=== PATIENT | female | born 1975 | race Caucasian/White ===

== ENCOUNTER 2018-06-14 16:40 | Outpatient (CLI) | payer MEDICARE, MEDICAID, SELFPAY ==
--- NOTE | 2018-06-14 16:40 | DI.RAD_ITS ---
SYMPTOM/DIAGNOSIS: CONSTIPATION, K59.00 ABDOMEN AND FLAT PLATE: Comparison is made with 13 July 2014. The visualized portions of the lung bases appear clear. Normal quantity of air is seen in the colon. There is no abnormal bowel distention or evidence of organomegaly. No urinary tract calculi are visible. IMPRESSION: Negative abdomen.
--- NOTE | 2018-06-14 17:02 | DI.VRAD_ITS ---
EXAM: XR Abdomen, 1 View EXAM DATE/TIME: 06/14/2018 4:40 PM CLINICAL HISTORY: 42 years old, female; Condition or disease; Other: Constipation; Additional info: Known megacolon TECHNIQUE: Frontal supine view of the abdomen/pelvis. COMPARISON: CR ABD FLAT UPRIGHT PA CHEST 10/15/2014 3:14 PM FINDINGS: Gastrointestinal tract: Normal. No bowel dilation. Bones/joints: Unremarkable for age. IMPRESSION: No acute findings. Dictated and Authenticated by: Shreyas Sauceda MD. Ordering:JUDITH FERNANDEZ MD
== END 2018-06-14 17:00 ==
PROVIDERS: PCP Family Medicine; Visit Provider Family Medicine
DX: K59.00 Constipation, unspecified (principal)
CPT/HCPCS: 74018

== ENCOUNTER 2019-02-13 12:12 | Day surgery (SDC) | payer MEDICARE, MEDICAID, SELFPAY ==
[2019-02-13] VITALS (9 sets, daily range): BP systolic 98–142; BP diastolic 57–109; PULSE 90–98; RESP 15–22; TEMP 36.2–36.7; O2SAT 93–100
--- NOTE | 2019-02-13 12:33 | W.ED.GENAD ---
Discharge Plan Discharge Details Chief Complaint: ThroatFB Primary Care Provider: Cecy Fulton ED Provider: Manish Simon Home Meds and New Rx's Prescriptions: No Action triamcinolone acetonide 15 GM cream 1 eric Topical PRN PRNQty: 3 RF: 4 adult diaper liners 1 dose Topical TID Qty: 90 RF: 12 medroxyprogesterone [Depo-Provera] 150 mg/mL suspension 150 mg IM [id number] Qty: 1 RF: 4 Women's Multivitamin Gummies 200 mcg tablet,chewable See Rx Instructions PO DAILY Qty: 90 RF: 5 topiramate [Topamax] 100 mg tablet 100 mg PO BID Qty: 180 RF: 4 ranitidine HCl 150 mg tablet 150 mg PO BID Qty: 180 RF: 12 lamotrigine 200 mg tablet 200 mg PO TID Qty: 270 RF: 12 cholecalciferol (vitamin D3) 1,000 unit capsule 2,000 unit PO DAILY Qty: 180 RF: 12 polyethylene glycol 3350 17 GM powder in packet 17 gm PO PRN PRNRF: 0 HPI General Date/Time Provider Initiated Documentation: 02/13/19 12:17. HPI Narrative: This is a 43-year-old female with a past medical history of mental retardation, cerebral palsy, seizures on Lamictal and Topamax who presents for suspected esophageal impaction. She has had 5-6 impactions in the past requiring surgical removal. Last night at 7 PM she was eating dinner then during dinner she just stopped eating. She is nonverbal. Since last night at 7 PM she has not been eating or drinking at all. She has had decreased urination, she has not taken any of her seizure medications. Mother denies any vomiting or diarrhea. She does admit to mild constipation. No other complaints at this time. No other modifying factors. Patient is on no blood thinners Related Data Home Medications Medication Instructions Recorded Confirmed triamcinolone acetonide 1 eric TOPICAL PRN PRN #3 script 12/10/12 06/07/18 polyethylene glycol 3350 17 gm PO PRN PRN 10/15/14 06/07/18 medroxyprogesterone 150 mg/mL 150 mg IM [id number] #1 vial 06/04/18 06/07/18 intramuscular suspension multivit with min-folic acid 200 See Rx Instructions PO DAILY #90 07/26/18 mcg chewable tablet tab cholecalciferol (vitamin D3) 1,000 2,000 unit PO DAILY #180 tab-cap 12/07/18 unit capsule lamotrigine 200 mg tablet 200 mg PO TID #270 tab-cap 12/07/18 ranitidine HCl 150 mg tablet 150 mg PO BID #180 tab-cap 12/07/18 topiramate 100 mg tablet 100 mg PO BID #180 tab-cap 12/07/18 Previous Rx's Medication Instructions Recorded medroxyprogesterone 150 mg/mL 150 mg IM [id number] #1 vial 06/04/18 intramuscular suspension multivit with min-folic acid 200 See Rx Instructions PO DAILY #90 07/26/18 mcg chewable tablet tab cholecalciferol (vitamin D3) 1,000 2,000 unit PO DAILY #180 tab-cap 12/07/18 unit capsule lamotrigine 200 mg tablet 200 mg PO TID #270 tab-cap 12/07/18 ranitidine HCl 150 mg tablet 150 mg PO BID #180 tab-cap 12/07/18 topiramate 100 mg tablet 100 mg PO BID #180 tab-cap 12/07/18 Allergies Allergy/AdvReac Type Severity Reaction Status Date / Time prochlorperazine Allergy Unknown Unverified 06/07/18 14:03 [facility] Medical History (Updated 06/07/18 @ 14:17 by Cecy Fulton MD, [place]) At risk for osteopenia (Chronic) Cerebral palsy (Chronic) Constipation (Chronic 07/07/14) Developmental disorder (Chronic) Epilepsy (Chronic) Injury of elbow (Resolved 06/04/79) Resp obstr-inhal obj NEC (Resolved) Seizure (Chronic) Total urinary incontinence (Chronic) Vitamin D deficiency, unspecified (Chronic 05/22/09) Surgical History (Updated 04/21/18 @ 14:34 by [employer] [place]) EGD - MAC (07/15/12) Removal of foreign body TOE SURGERY (11/04/12) Tooth extraction Family History Mother Hyperlipidemia Father Essential hypertension Depression Hyperlipidemia Vascular disease Lung cancer Stroke Sister Essential hypertension Sister No problems noted. Grandfather Hyperlipidemia Stroke Chronic obstructive lung disease Grandfather Essential hypertension Hyperlipidemia Stroke Chronic obstructive lung disease Grandmother Diabetes Essential hypertension Hyperlipidemia Grandmother Essential hypertension Hyperlipidemia Stroke MATERNAL GREAT GRANDMOTHER No problems noted. Social History Smoking/Tobacco Use Status: Never Drug use: Never
--- NOTE | 2019-02-13 12:45 | W.PM.HP.N ---
Date of service: 02/13/19 Time of Service: 12:45 Assessment and Plan (1) GERD (gastroesophageal reflux disease): Current visit: Yes Status: Chronic plan on GETA risks: bleeding/infection/perforation/asp. anesthesia she is on H2 abel at home no prior head/neck surgery/injury/xrt consent obtained from mother also st cath for amount and UA. hx of UTI as well- per mother's request (2) Impacted esophageal foreign body: Current visit: Yes Status: Acute History of Present Illness Chief Complaint: june foreign body Consults Consult date: 02/13/19 Requesting physician: Manish Simon Narrative: pt has a hx of esoph FB. had tolerated anesthesia in psat w/ out problems. does well w/ just propafol. was eating pork last night. Since than has not been able to swallow water or take meds. Has had no urination since last pm. Review of Systems Review of Systems Unobtainable due to mental condition and Unobtainable due to (reviewed w/ mother. not had seizure meds today. no urination x 24 hrs. re) [facility] Medical History (Updated 02/13/19 @ 13:32 by Juana Escobar DO) At risk for osteopenia (Chronic) Cerebral palsy (Chronic) Constipation (Chronic 07/07/14) Developmental disorder (Chronic) Epilepsy (Chronic) GERD (gastroesophageal reflux disease) (Chronic) Impacted esophageal foreign body (Acute) Injury of elbow (Resolved 06/04/79) Resp obstr-inhal obj NEC (Resolved) Seizure (Chronic) Total urinary incontinence (Chronic) Vitamin D deficiency, unspecified (Chronic 05/22/09) Surgical History (Updated 04/21/18 @ 14:34 by [place]) EGD - MAC (07/15/12) Removal of foreign body TOE SURGERY (11/04/12) Tooth extraction Family History Mother Hyperlipidemia Father Essential hypertension Depression Hyperlipidemia Vascular disease Lung cancer Stroke Sister Essential hypertension Sister No problems noted. Grandfather Hyperlipidemia Stroke Chronic obstructive lung disease Grandfather Essential hypertension Hyperlipidemia Stroke Chronic obstructive lung disease Grandmother Diabetes Essential hypertension Hyperlipidemia Grandmother Essential hypertension Hyperlipidemia Stroke MATERNAL GREAT GRANDMOTHER No problems noted. Social History Smoking/Tobacco Use Status: Never Alcohol Intake: never Drug use: Never Meds Home Medications Medication Instructions Recorded Confirmed Type triamcinolone acetonide 1 eric TOPICAL PRN PRN #3 script 12/10/12 02/13/19 History polyethylene glycol 3350 17 gm PO PRN PRN 10/15/14 02/13/19 History Adult Diaper Liners 1 dose TOPICAL TID #90 dose 05/25/17 06/07/18 Clinic medroxyprogesterone 150 mg/mL 150 mg IM [id number] #1 vial 06/04/18 02/13/19 Rx intramuscular suspension multivit with min-folic acid 200 See Rx Instructions PO DAILY #90 07/26/18 02/13/19 Rx mcg chewable tablet tab cholecalciferol (vitamin D3) 1,000 2,000 unit PO DAILY #180 tab-cap 12/07/18 02/13/19 Rx unit capsule lamotrigine 200 mg tablet 200 mg PO TID #270 tab-cap 12/07/18 02/13/19 Rx ranitidine HCl 150 mg tablet 150 mg PO BID #180 tab-cap 12/07/18 02/13/19 Rx topiramate 100 mg tablet 100 mg PO BID #180 tab-cap 12/07/18 02/13/19 Rx Allergies Allergy/AdvReac Type Severity Reaction Status Date / Time prochlorperazine Allergy Unknown Unverified 02/13/19 12:35 Exam Const General: cooperative, healthy appearing, comfortable, no acute distress, well developed and well groomed Nutritional Appearance: average body habitus and well nourished Orientation: alert and awake Other: drooling and cannot manage secretions. hx of swallow objects as well HENMT Head: normal to inspection, normocephalic and atraumatic Ears: hearing grossly normal bilaterally and external ears normal General nose exam: external nose normal Face and sinus: normal facial exam and sinuses nontender Mouth: oral mucosae normal, lip normal, tongue normal, moist mucous membranes and drooling Teeth and gingiva: dentition normal and other (teeth grinding ) Eyes General: appearance normal, both eyes and all related structures Conjunctivae: conjunctivae normal Sclera: sclerae normal Pupils: PERRL Neck Neck: normal visual inspection and full ROM Chest Chest: normal inspection of the chest Resp Effort & Inspection: normal respiratory effort, able to speak in complete sentences, no cough, no nasal flaring, not tachypneic and no use of accessory muscles Auscultation: clear to auscultation bilaterally, no rales, no rhonchi and no wheezes Cardio Jugular venous pressure: no JVD Rate: regular rate Rhythm: regular rhythm GI Inspection: normal to inspection, no edema and non-distended Palpation: soft, no masses, nontender and No ascites Auscultation: normal bowel sounds Skin General skin exam: no rashes or lesions noted Trauma: no lacerations or abrasions Neuro General: alert, moves all extremities and CN's II-XI intact bilaterally Gait: antalgic Extrem General: normal to inspection, full ROM and no clubbing, cyanosis or edema Psych Appearance: grossly normal and well kempt Mental Status: mental status grossly normal Speech and Movement: speech and movement normal Affect: normal affect Results Labs : 02/13/19 13:05 02/13/19 13:05 Last Vital Signs Temp 36.7 C 02/13/19 12:29 Pulse 96 H 02/13/19 12:29 Resp 20 02/13/19 12:29 BP 142/62 H 02/13/19 12:29 Pulse Ox 100 02/13/19 12:29
[2019-02-13] MEDS: Normal Saline 1,000 ML 1000 ML IV (13:05)
[2019-02-13 13:22] LABS: Abs Immature Grans 0.04 k/cumm (0.0-0.09); Absolute Basophil Count 0.04 k/cumm (0.0-0.2); Basophils % 0.3; Immature Grans % 0.3; Lymphocytes % 19.9; Mean Corp. HGB Concentration 33.3 g/dL (32.0-36.0); Mean Corpuscular Hemoglobin 30.3 pg (27.0-33.0); Mean Corpuscular Volume 90.9 fL (80-95); Mean Platelet Volume 9.6 fL (8.0-11.0); Monocytes % 7.6; Neutrophils % 68.9; Platelet Count 280 x1000/uL (130-400); RBC 5.28 m/cumm (4.00-5.20); RBC Distribution Width 13.3 % (11.7-14.6); White Blood Cell Count 14.55 k/cumm (4.4-10.8)
[2019-02-13 13:24] LABS: Absolute Eosinophil Count 0.44 k/cumm (0.0-0.7); Absolute Monocyte Count 1.11 k/cumm (0.11-0.7); Absolute Neutrophil Count 10.02 k/cumm (1.2-6.7)
[2019-02-13 13:32] LABS: ALT 30 U/L (12-78); AST 9 U/L (15-37); Albumin 4.2 g/dL (3.4-5.0); Alkaline Phosphatase 102 U/L (46-116); Anion Gap 13.2 mmol/L (3-11); BUN 19 mg/dL (7-18); Bilirubin, Total 0.5 mg/dL (0.2-1.0); CO2 21.8 mmol/L (21.0-32.0); CREATININE 0.92 mg/dL (0.55-1.02); Calcium 9.1 mg/dL (8.5-10.1); Chloride 107 mmol/L (98-107); Glucose 92 mg/dL (70-100); Potassium 3.8 mmol/L (3.5-5.1); Sodium 142 mmol/L (136-145); Total Protein 8.3 g/dL (6.4-8.2)
--- NOTE | 2019-02-13 14:08 | STOM_PTH ---
PATIENT: Betzaida Barajas LOC: [facility]NA U#:[id number] AGE/SX: 43/F ROOM: RE02/13/[address]: Juana Escobar : 1975 BED: DIS: 02/13/2019 SPEC #: [id number] RECD: 02/14/19 12:34 STATUS: BASIA RE #: [id number] GEREMIAS: 02/13/19 14:[address]: Juana Escobar DEPT: Surgical Specimen RECD BY: Nena Trejo ENTERED: 02/14/19 12:35 SP TYPE: STOMACH OTHR DR: Cecy Fulton MD, DC Tissues: 1 - STOMACH BIOPSY 2 - ESOPHAGUS BIOPSY Procedures: GROSS AND MICRO LEVEL 4 Comments: [id number]
--- NOTE | 2019-02-13 14:21 | W.PM.DSUDISC ---
Discharge Plan Disposition Patient Disposition: HOME Condition: Stable Discharge Details Chief Complaint: ThroatFB Reason For Visit: eophageal foreign body Attending Provider: Juana Escobar Primary Care Provider: Cecy Fulton ED Provider: Manish Simon Home Meds and New Rx's Prescriptions: New pantoprazole 40 mg tablet,delayed release (DR/EC) 40 mg PO DAILY Qty: 30 RF: 12 Continued triamcinolone acetonide 15 GM cream 1 eric Topical PRN PRNQty: 3 RF: 4 adult diaper liners 1 dose Topical TID Qty: 90 RF: 12 medroxyprogesterone [Depo-Provera] 150 mg/mL suspension 150 mg IM [id number] Qty: 1 RF: 4 Women's Multivitamin Gummies 200 mcg tablet,chewable See Rx Instructions PO DAILY Qty: 90 RF: 5 topiramate [Topamax] 100 mg tablet 100 mg PO BID Qty: 180 RF: 4 lamotrigine 200 mg tablet 200 mg PO TID Qty: 270 RF: 12 cholecalciferol (vitamin D3) 1,000 unit capsule 2,000 unit PO DAILY Qty: 180 RF: 12 polyethylene glycol 3350 17 GM powder in packet 17 gm PO PRN PRNRF: 0 Discontinued ranitidine HCl 150 mg tablet 150 mg PO BID Qty: 180 RF: 12 Discharge Instructions Additional Instructions: -full liquids today/untill tomorrow am -will have sore throat -sign of chronic erosive esophagitis -avoid pork chops/roast beef/steak/venision. ground meats ok Activity:: Activity as Tolerated Diet:: full liquids until tomorrow am DS: Diagnosis Discharge Diagnosis (1) GERD (gastroesophageal reflux disease): Status: Chronic (2) Impacted esophageal foreign body: Status: Acute
--- NOTE | 2019-02-13 14:36 | W.PM.DSUDISC ---
Discharge Plan Disposition Patient Disposition: HOME Condition: Stable Discharge Details Chief Complaint: ThroatFB Reason For Visit: eophageal foreign body Attending Provider: Juana Escobar Primary Care Provider: Cecy Fulton ED Provider: Manish Simon Home Meds and New Rx's Prescriptions: New pantoprazole 40 mg tablet,delayed release (DR/EC) 40 mg PO DAILY Qty: 30 RF: 12 fluconazole 40 mg/mL suspension for reconstitution 100 mg PO DAILY 5 Days Qty: 12.5 RF: 0 Continued triamcinolone acetonide 15 GM cream 1 eric Topical PRN PRNQty: 3 RF: 4 adult diaper liners 1 dose Topical TID Qty: 90 RF: 12 medroxyprogesterone [Depo-Provera] 150 mg/mL suspension 150 mg IM [id number] Qty: 1 RF: 4 Women's Multivitamin Gummies 200 mcg tablet,chewable See Rx Instructions PO DAILY Qty: 90 RF: 5 topiramate [Topamax] 100 mg tablet 100 mg PO BID Qty: 180 RF: 4 lamotrigine 200 mg tablet 200 mg PO TID Qty: 270 RF: 12 cholecalciferol (vitamin D3) 1,000 unit capsule 2,000 unit PO DAILY Qty: 180 RF: 12 polyethylene glycol 3350 17 GM powder in packet 17 gm PO PRN PRNRF: 0 Discontinued ranitidine HCl 150 mg tablet 150 mg PO BID Qty: 180 RF: 12 Discharge Instructions Additional Instructions: -full liquids today/untill tomorrow am -will have sore throat -sign of chronic erosive esophagitis -avoid pork chops/roast beef/steak/venision. ground meats ok Activity:: Activity as Tolerated Diet:: full liquids until tomorrow am DS: Diagnosis Discharge Diagnosis (1) GERD (gastroesophageal reflux disease): Status: Chronic (2) Impacted esophageal foreign body: Status: Acute
[2019-02-13 14:59] LABS: Bilirubin Negative (Negative); Blood Negative (Negative); Clarity Cloudy (Clear); Glucose Negative (Negative); Ketones 15 mg/dL (Negative); Leukocyte Esterase Negative (Negative); Nitrite Negative (Negative); Urobilinogen 0.2 EU/dL (Up TO 0.2); pH 7.5 (5-8)
[2019-02-13 15:14] LABS: Bacteria Few HPF (Negative); C & S Indicated? C&S Done As Ordered; Casts Negative LPF (Negative); Crystals Moderate Amorphous HPF (Negative); Epithelial Cells Negative HPF (Negative); Mucus Trace (Negative); RBC Negative (0-2); WBC 0-2 HPF (0-5)
--- NOTE | 2019-02-13 15:40 | W.PM.DS.N ---
DS: Diagnosis Discharge Diagnosis (1) GERD (gastroesophageal reflux disease): Status: Chronic (2) Impacted esophageal foreign body: Status: Acute Discharge Plan Disposition Patient Disposition: HOME Condition: Stable Discharge Details Chief Complaint: ThroatFB Reason For Visit: eophageal foreign body Attending Provider: Juana Escobar Primary Care Provider: Cecy Fulton ED Provider: Manish Simon Home Meds and New Rx's Prescriptions: New pantoprazole 40 mg tablet,delayed release (DR/EC) 40 mg PO DAILY Qty: 30 RF: 12 fluconazole 40 mg/mL suspension for reconstitution 100 mg PO DAILY 5 Days Qty: 12.5 RF: 0 Continued triamcinolone acetonide 15 GM cream 1 eric Topical PRN PRNQty: 3 RF: 4 adult diaper liners 1 dose Topical TID Qty: 90 RF: 12 medroxyprogesterone [Depo-Provera] 150 mg/mL suspension 150 mg IM [id number] Qty: 1 RF: 4 Women's Multivitamin Gummies 200 mcg tablet,chewable See Rx Instructions PO DAILY Qty: 90 RF: 5 topiramate [Topamax] 100 mg tablet 100 mg PO BID Qty: 180 RF: 4 lamotrigine 200 mg tablet 200 mg PO TID Qty: 270 RF: 12 cholecalciferol (vitamin D3) 1,000 unit capsule 2,000 unit PO DAILY Qty: 180 RF: 12 polyethylene glycol 3350 17 GM powder in packet 17 gm PO PRN PRNRF: 0 Discontinued ranitidine HCl 150 mg tablet 150 mg PO BID Qty: 180 RF: 12 Discharge Instructions Instructions: Esophageal Foreign Body (GEN) Additional Instructions: -full liquids today/untill tomorrow am -will have sore throat -sign of chronic erosive esophagitis -avoid pork chops/roast beef/steak/venision. ground meats ok -UA neg. culture pd. will call in Rx if postive/contact mother Stand Alone Forms: Nursing Discharge Form Activity:: Activity as Tolerated Diet:: full liquids until tomorrow am Discharge Orders Discharge Orders: Discharge Order (Routine); Ordered 02/13/19 Ordered By: Juana Escobar Exam Const General: cooperative, healthy appearing, comfortable, no acute distress, well developed and well groomed Nutritional Appearance: average body habitus and well nourished Orientation: alert and awake Other: appears to be much happier. tolerating po's. no further drooling HENMT Head: normal to inspection, normocephalic and atraumatic Ears: hearing grossly normal bilaterally and external ears normal General nose exam: external nose normal Face and sinus: normal facial exam and sinuses nontender Mouth: oral mucosae normal, lip normal, tongue normal and moist mucous membranes Teeth and gingiva: dentition normal Other: no dental carries noted in OR Eyes General: appearance normal, both eyes and all related structures Conjunctivae: conjunctivae normal Sclera: sclerae normal Pupils: PERRL Neck Neck: normal visual inspection and full ROM Chest Chest: normal inspection of the chest Resp Effort & Inspection: normal respiratory effort, able to speak in complete sentences, no cough, no nasal flaring, not tachypneic and no use of accessory muscles Auscultation: clear to auscultation bilaterally, no rales, no rhonchi and no wheezes Cardio Jugular venous pressure: no JVD Rate: regular rate Rhythm: regular rhythm GI Inspection: normal to inspection, no edema and non-distended Palpation: soft, no masses, nontender and No ascites Auscultation: normal bowel sounds Other: pt had thick water discharge on labia. mild generalized redness in groin Skin General skin exam: no rashes or lesions noted Trauma: no lacerations or abrasions Neuro General: alert, oriented, moves all extremities, no focal motor deficits and CN's II-XI intact bilaterally Cognition: normal cognition and abnormal cognition Speech: anomia Gait: antalgic Motor: muscle tone normal throughout Extrem General: normal to inspection, full ROM and no clubbing, cyanosis or edema Psych Appearance: grossly normal and well kempt Mental Status: mental status grossly normal Speech and Movement: speech and movement normal Affect: normal affect DS: Data Vitals/I&O Vitals and I&O: Vital Signs Temperature 36.2 C L 02/13/19 15:28 Temperature Source Temporal Artery Scan 02/13/19 12:29 Pulse 95 H 02/13/19 15:28 Respiratory Rate 18 02/13/19 15:28 Respiratory Effort Non-Labored 02/13/19 13:11 Respiratory Pattern Normal 02/13/19 13:11 Blood Pressure 111/57 L 02/13/19 15:28 Blood Pressure Position Sitting 02/13/19 12:29 Pulse Oximetry 97 02/13/19 15:28 Respiratory End-tidal CO2 29 02/13/19 14:51 Oxygen Delivery Method Room Air 02/13/19 15:28 Oxygen Flow Rate 0 02/13/19 14:51 Pain Level 0 02/13/19 15:28 Intake & Output 02/12/19 02/13/19 02/13/19 23:59 11:59 23:59 Intake Total 700 / 700 Output Total 500 / 500 Balance 200 / 200 Weight 63.503 kg Intake: IV 700 / 700 Output: Urine 500 / 500 Other: Urine Color Light Renetta Urine Appearance Cloudy Sediment Comment sent for UA Emesis Description None Labs on day of discharge: Labs from last 24 hours 02/13/19 02/13/19 02/13/19 13:56 13:05 13:05 WBC 14.55 H RBC 5.28 H Hgb 16.0 H Hct 48.0 H MCV 90.9 MCH 30.3 MCHC 33.3 RDW 13.3 Plt Count 280 MPV 9.6 Immature Gran % 0.3 Neutrophils % 68.9 Lymphocytes % 19.9 Monocytes % 7.6 Eosinophils % 3.0 Basophils % 0.3 Absolute Neutrophils 10.02 H Absolute Lymphocytes 2.90 Absolute Monocytes 1.11 H Absolute Eosinophils 0.44 Absolute Basophils 0.04 Sodium 142 Potassium 3.8 Chloride 107 Carbon Dioxide 21.8 Anion Gap 13.2 H BUN 19 H Creatinine 0.92 Estimated GFR/1.73 m2 >= 60.00 Glucose 92 Calcium 9.1 Total Bilirubin 0.5 AST 9 L ALT 30 Alkaline Phosphatase 102 Total Protein 8.3 H Albumin 4.2 Urine Color Yellow Urine Clarity Cloudy Urine pH 7.5 Ur Specific [place] 1.020 Urine Protein Trace H Urine Ketones 15 H Urine Blood Negative Urine Nitrite Negative Urine Bilirubin Negative Urine Urobilinogen 0.2 Ur Leukocyte Esterase Negative Urine RBC Negative Urine WBC 0-2 Ur Epithelial Cells Negative Urine Crystals Moderate amorphous Urine Bacteria Few Urine Casts Negative Urine Mucus Trace Ur Culture Indicated? C&s done as ordered Urine Glucose Negative 02/13/19 13:56 Urine - Cath Straight Urine Culture - Pending Preliminary micro results at discharge 02/13/19 13:56 Urine Culture - Pending Urine - Cath Straight [facility] Medical History (Updated 02/13/19 @ 13:32 by Juana M Stoiber, DO) At risk for osteopenia (Chronic) Cerebral palsy (Chronic) Constipation (Chronic 07/07/14) Developmental disorder (Chronic) Epilepsy (Chronic) GERD (gastroesophageal reflux disease) (Chronic) Impacted esophageal foreign body (Acute) Injury of elbow (Resolved 06/04/79) Resp obstr-inhal obj NEC (Resolved) Seizure (Chronic) Total urinary incontinence (Chronic) Vitamin D deficiency, unspecified (Chronic 05/22/09) Surgical History (Updated 04/21/18 @ 14:34 by [employer] [place]) EGD - MAC (07/15/12) Removal of foreign body TOE SURGERY (11/04/12) Tooth extraction Family History Mother Hyperlipidemia Father Essential hypertension Depression Hyperlipidemia Vascular disease Lung cancer Stroke Sister Essential hypertension Sister No problems noted. Grandfather Hyperlipidemia Stroke Chronic obstructive lung disease Grandfather Essential hypertension Hyperlipidemia Stroke Chronic obstructive lung disease Grandmother Diabetes Essential hypertension Hyperlipidemia Grandmother Essential hypertension Hyperlipidemia Stroke MATERNAL GREAT GRANDMOTHER No problems noted. Social History Smoking/Tobacco Use Status: Never Alcohol Intake: never Drug use: Never
--- NOTE | 2019-02-14 10:13 | ENDO_ITS ---
DATE OF PROCEDURE: February 13, 2019 PREOPERATIVE DIAGNOSIS: Esophageal foreign body. POSTOPERATIVE DIAGNOSIS: Esophageal foreign body with erosive esophagitis and gastric polyp. SURGEON: Juana Escobar D.O. ANESTHESIA: General. ESTIMATED BLOOD LOSS: < 2 cc's CONDITION: The patient tolerated the procedure well without complications. INDICATION FOR PROCEDURE: Ms. Barajas is a 43-year-old female who presented to the ER today with her mother with esophageal foreign body impaction. She has a history of CP and seizures and developmental delay. This has happened to her in the past. She has tolerated the EGD and general anesthesia well. She has not been able to take any of her medications. She is not able to manage her secretions today and this is atypical for her. She has nt wanted anything to eat/drink. Normally she is a good eater. She will be going to the OR for EGD. Informed consent was obtained from her mother, who is her legal guardian, explaining risks and benefits of the procedure including but not limited to bleeding, infection, perforation, aspiration, pneumonia, complications of anesthesia and other unforetold complications. She also has not urinated since yesterday evening. She has a history of urinary retention and UTI and patient's mom would like her straight-catheterized, so we will do this in the OR as well. PROCEDURE DESCRIPTION: The patient was brought to the endoscopy suite. General anesthesia is administered per the Department of Anesthesia. The patient is straight-catheterized for 500 cc's; it is quite cloudy and appears she has some of a topical cream is being placed in her ketty area, that's gotten up into her urethra. She is straight-catheterized for 500 cc's of dark, danelle, cloudy urine. A specimen is sent for urinalysis and culture. Attention is then turned to the EGD. A time-out is performed. The previously- lubricated Olympus scope is easily inserted in the oropharynx and passed down into the upper esophagus. She has three large pieces of food material that are swept up into a basket and removed. The esophagus is very irritated at the site of the food bolus and at the GE junction there are also definite signs of erosive esophagitis. There is no hiatal hernia. The scope is then passed into the stomach. She does have multiple polyps; several of these look like they actually have been bleeding for whatever reason and there is no other sign of erosive gastritis, in the body of the stomach. There is just some old blood on the isolated polyps. A biopsy is taken of one of the tax representative polyps. There is minimal bleeding noted. Biopsies are also taken from the GE junction. The pylorus is freely patent and the duodenum is normal. There is no significant bleeding. The scope is then withdrawn. All air is removed. The patient tolerated the procedure well without complication and transferred to the recovery room in stable condition. cc: Cecy Fulton M.D.
== END 2019-02-13 16:16 | disposition home or self-care (01) ==
LOC: ER 13:11 → SUR 13:27 → MS 15:27
PROVIDERS: Emergency Provider Student in an Organized Health Care Education/Training Program; PCP Family Medicine; Visit Provider Surgery
PROC: 0DC68ZZ Extirpation of Matter from Stomach, Via Natural or Artificial Opening Endoscopic (ICD-10-PCS; CPT 43247; principal; 2019-02-13 13:15)
DX: T18.128A Food in esophagus causing other injury, initial encounter (principal); K31.7 Polyp of stomach and duodenum; K22.2 Esophageal obstruction; K21.0 Gastro-esophageal reflux disease with esophagitis; K22.10 Ulcer of esophagus without bleeding; G80.9 Cerebral palsy, unspecified; G40.909 Epilepsy, unspecified, not intractable, without status epilepticus
CPT/HCPCS: 43247; 43239; 80053; 88305; 99214; 99222; 99238; 81003; 81015; 85025; 87086; J2405; J3010

== ENCOUNTER 2020-12-08 13:06 | Day surgery (SDC) | payer MEDICARE, MEDICAID, SELFPAY ==
--- NOTE | 2020-12-08 13:11 | ED.GENADUL_ITS ---
Discharge Plan Disposition Patient Disposition: [facility] INPATIENT Condition: Stable Discharge Details Clinical Impression: Esophageal foreign body Admit Date/Time: 12/08/20 15:08 Admit Provider: Juana Escobar Attending Provider: Juana Escobar Primary Care Provider: Cecy Fulton ED Provider: Myranda Glasgow Discharge Data Discharge Date/Time-TO BE ENTERED AT DEPARTURE: 12/08/20 15:05 Medical Decision Making 45-year-old female with a history of cerebral palsy, developmental delay, previous history of food impaction requiring endoscopy presents for possible esophageal food impaction for the past 2 days. Per mom, patient appears slightly uncomfortable but denies any vomiting or difficulty breathing. No drooling noted on exam. Oxygen saturation within normal limits. She is afebrile. Lungs clear bilaterally. Abdomen soft nontender. Patient will not allow inspection of the oropharynx. Patient evaluated by Dr. Escobar at bedside. Plan is to take patient to the OR. Mom at bedside and is agreeable with plan. Medical Records Medical records reviewed: Yes I reviewed the patient's medical records. HPI General Mode of arrival: ambulatory . Date/Time Provider Initiated Documentation: 12/08/20 13:11 . Limitations to Documentation: no limitations, altered mental status and physical limitation . Information obtained by: family . HPI Narrative: Patient is a 45-year-old female with a history of cerebral palsy, developmental delay, GERD and previous esophageal foreign body due to food impaction presents for concern for a pecan stuck in her esophagus for the past 2 days. Mom states that patient had ice cream with small pecans in it 2 nights ago and she states patient has not been taking her meds or eating or drinking since then. She states she thought she removed all the pecans but she is wondering if one of them is stuck. She states she was able to drink some milk and take her medication right after they schedule nights ago but has not taken her meds or eaten or drank anything since yesterday. She states she noted saliva from drooling all over her bed yesterday. She states she does appear slightly uncomfortable but denies any fever, vomiting, difficulty breathing. Related Data Home Medications Medication Instructions Recorded Confirmed triamcinolone acetonide 1 eric TOPICAL PRN PRN #3 script 12/10/12 12/08/20 polyethylene glycol 3350 17 gm PO PRN PRN 10/15/14 12/08/20 multivitamin with minerals-folic See Rx Instructions PO DAILY #90 06/09/19 12/08/20 acid 200 mcg chewable tablet tab cholecalciferol (vitamin D3) 25 2,000 unit PO DAILY #180 tab-cap 11/03/19 12/08/20 mcg (1,000 unit) capsule medroxyprogesterone 150 mg/mL 150 mg IM [id number] #1 vial 11/03/19 12/08/20 intramuscular suspension topiramate 100 mg tablet 100 mg PO BID #180 tab-cap 11/03/19 12/08/20 lamotrigine 200 mg tablet 200 mg PO TID #270 tab-cap 07/27/20 12/08/20 pantoprazole 40 mg tablet,delayed 40 mg PO DAILY #30 tab 10/26/20 12/08/20 release Previous Rx's Medication Instructions Recorded multivitamin with minerals-folic See Rx Instructions PO DAILY #90 06/09/19 acid 200 mcg chewable tablet tab cholecalciferol (vitamin D3) 25 2,000 unit PO DAILY #180 tab-cap 11/03/19 mcg (1,000 unit) capsule medroxyprogesterone 150 mg/mL 150 mg IM [id number] #1 vial 11/03/19 intramuscular suspension topiramate 100 mg tablet 100 mg PO BID #180 tab-cap 11/03/19 lamotrigine 200 mg tablet 200 mg PO TID #270 tab-cap 07/27/20 pantoprazole 40 mg tablet,delayed 40 mg PO DAILY #30 tab 10/26/20 release Allergies Allergy/AdvReac Type Severity Reaction Status Date / Time amoxicillin Allergy Intermediate rash Verified 10/15/20 16:31 prochlorperazine Allergy Unknown Unverified 06/09/19 11:10 General ELIA: 3 Review of Systems Unobtainable due to mental status [facility] Medical History At risk for osteopenia DEPO PROVERA X5 YRS Cerebral palsy Constipation (07/07/14) Developmental disorder Epilepsy GERD (gastroesophageal reflux disease) Impacted esophageal foreign body Injury of elbow (06/04/79) R FOREARM FX Resp obstr-inhal obj NEC ENDOSCOPIES FOR REMOVAL OF FOREIGN BODIES Seizure CP W/ MOVT DISORDER; SEIZURES. Total urinary incontinence Vitamin D deficiency, unspecified (05/22/09) Surgical History EGD - MAC (07/15/12) Removal of foreign body X 3 TOE SURGERY (11/04/12) RIGHT TOE FX Tooth extraction Family History Mother Hyperlipidemia Father , age 64 Essential hypertension Depression Hyperlipidemia Vascular disease Lung cancer Stroke Sister Essential hypertension Maternal Grandfather Hyperlipidemia Stroke Chronic obstructive lung disease Paternal Grandfather Essential hypertension Hyperlipidemia Stroke Chronic obstructive lung disease Maternal Grandmother Diabetes Essential hypertension Hyperlipidemia Paternal Grandmother Essential hypertension Hyperlipidemia Stroke MATERNAL GREAT GRANDMOTHER No problems noted. Social History Smoking/Tobacco Use Status: Never Smoking risk assessment performed?: Yes Alcohol Intake: never Drug use: Never Caregiver/Support person: Yes Household members: family and other Details: Mother Housing: house Communication Needs: Cannot Read Do you need help understanding health information?: Always Pets and animals: Yes Pets and animals: cat(s) Sexually active: No Current gender identity: female What is your relationship status?: never How often do you talk on the phone with friends or family?: never How often do you get together with friends or relatives?: three or more times per week How often do you attend yarsanism or gnosticism services?: decline to answer Do you belong to any clubs or organized social groups?: no Panel score (0-1 are the most socially isolated patients): 1 What type of physical activity do you participate in: none Seatbelt use: always Do you feel safe at home: Yes Do you feel safe in your relationship?: Yes Exam Const General: no acute distress HENMT Head: normal to inspection Ears: hearing grossly normal bilaterally and external ears normal General nose exam: external nose normal Face and sinus: normal facial exam Mouth: oral mucosae normal, no drooling and no trismus Eyes General: appearance normal, both eyes and all related structures EOM: EOM intact bilaterally Neck Neck: normal visual inspection and No submandibular swelling Resp Effort & Inspection: normal respiratory effort Auscultation: clear to auscultation bilaterally Cardio Rate: regular rate Rhythm: regular rhythm GI Palpation: soft, not firm, not rigid and nontender Auscultation: normal bowel sounds Skin General skin exam: no rashes or lesions noted Neuro General: patient alert, patient awake, patient oriented x3, moves all extremities, no meningeal signs and no focal motor deficits Motor: muscle tone normal throughout Sensory Exam: no sensory deficits noted Extrem General: normal to inspection and full ROM Psych Appearance: grossly normal
[2020-12-08 13:12] VITALS: BP 145/120; PULSE 104; RESP 16; TEMP 36.5; O2SAT 97
--- NOTE | 2020-12-08 13:28 | W.SURGCON ---
Date of service: 12/08/20 Time of Service: 13:28 Assessment and Plan Assessment and plan (1) Esophageal foreign body: Status: Acute Assessment and plan: Consent is obtained from her mother/legal guardian. Wrist and benefits are discussed. Risks include bleeding, infection, perforation, aspiration, and complications of anesthesia. The general. She does have postop nausea vomiting particularly with narcotic. She should be able to be discharged home following the procedure. She is not had her seizure medication 24 hours (2) GERD (gastroesophageal reflux disease): Status: Chronic (3) Total urinary incontinence: Status: Chronic (4) Seizure: Status: Chronic (5) Constipation: Status: Chronic (6) Developmental disorder: Status: Chronic (7) Cerebral palsy: Status: Chronic (8) Epilepsy: Status: Chronic History of Present Illness Narrative: pt has a hx history of developmental delay and esophageal foreign body. I have actually seen her before. Mom is a ICU nurse is very conscientious. She may have a peak on her green beans. Throat. She cannot control her secretions and is drooling. She not been able to swallow her medications for the past 12 hours. She has not eaten in 24 hours. She is not on any blood thinners. She has had the procedure done before and has had no problems with anesthesia. She has not had her seizure medications in the past 12 hours following. And she looks physically uncomfortable. Her vitals are stable. Please see ER nurses notes. Consults Consult date: 12/08/20 Review of Systems All systems reviewed & are unremarkable except as noted in HPI and below PFSH Medical History At risk for osteopenia DEPO PROVERA X5 YRS Cerebral palsy Constipation (07/07/14) Developmental disorder Epilepsy GERD (gastroesophageal reflux disease) Impacted esophageal foreign body Injury of elbow (06/04/79) R FOREARM FX Resp obstr-inhal obj NEC ENDOSCOPIES FOR REMOVAL OF FOREIGN BODIES Seizure CP W/ MOVT DISORDER; SEIZURES. Total urinary incontinence Vitamin D deficiency, unspecified (05/22/09) Surgical History EGD - MAC (07/15/12) Removal of foreign body X 3 TOE SURGERY (11/04/12) RIGHT TOE FX Tooth extraction Family History Mother Hyperlipidemia Father , age 64 Essential hypertension Depression Hyperlipidemia Vascular disease Lung cancer Stroke Sister Essential hypertension Maternal Grandfather Hyperlipidemia Stroke Chronic obstructive lung disease Paternal Grandfather Essential hypertension Hyperlipidemia Stroke Chronic obstructive lung disease Maternal Grandmother Diabetes Essential hypertension Hyperlipidemia Paternal Grandmother Essential hypertension Hyperlipidemia Stroke MATERNAL GREAT GRANDMOTHER No problems noted. Social History Smoking/Tobacco Use Status: Never Smoking risk assessment performed?: Yes Alcohol Intake: never Drug use: Never Caregiver/Support person: Yes Household members: family and other Details: Mother Housing: house Communication Needs: Cannot Read Do you need help understanding health information?: Always Pets and animals: Yes Pets and animals: cat(s) Sexually active: No Current gender identity: female What is your relationship status?: never How often do you talk on the phone with friends or family?: never How often do you get together with friends or relatives?: three or more times per week How often do you attend congregation or church services?: decline to answer Do you belong to any clubs or organized social groups?: no Panel score (0-1 are the most socially isolated patients): 1 What type of physical activity do you participate in: none Seatbelt use: always Do you feel safe at home: Yes Do you feel safe in your relationship?: Yes Exam HENMT Other: She is smiling and appears uncomfortable. She is drooling and cannot control her secretions Resp Effort & Inspection: normal respiratory effort and able to speak in complete sentences Auscultation: clear to auscultation bilaterally Cardio Rate: regular rate Rhythm: regular rhythm GI Palpation: soft, no guarding, nontender and No ascites Results Last Vital Signs Temp 36.5 C 12/08/20 13:12 Pulse 104 H 12/08/20 13:12 Resp 16 12/08/20 13:12 BP 145/120 H 12/08/20 13:12 Pulse Ox 97 12/08/20 13:12 Labs Result diagrams: 12/08/20 14:00 12/08/20 14:00
[2020-12-08] MEDS: Lactated Ringers 1,000 ML 100 ML IV (13:42)
[2020-12-08 13:46] VITALS: BP 140/99; PULSE 103; RESP 20; O2SAT 97
--- NOTE | 2020-12-08 14:04 | W.ANESPRE ---
General Info Date of Service Date Performed: 12/08/20 Height: 5 ft 6 in Weight: 62.142 kg Body Mass Index (BMI): 22.1 Surgical Procedure: Operation Date: 12/08/20 13:40 Proposed Procedures Side Surgeon p Gastroscopy/Removal Foreign Body Juana Escobar DO Meds Allergies and Home Medications Allergies Allergy/AdvReac Type Severity Reaction Status Date / Time amoxicillin Allergy Intermediate rash Verified 10/15/20 16:31 prochlorperazine Allergy Unknown Unverified 06/09/19 11:10 Home Medication Medication Instructions Recorded triamcinolone acetonide 1 eric TOPICAL PRN PRN #3 script 12/10/12 polyethylene glycol 3350 17 gm PO PRN PRN 10/15/14 multivitamin with minerals-folic See Rx Instructions PO DAILY #90 06/09/19 acid 200 mcg chewable tablet tab cholecalciferol (vitamin D3) 25 2,000 unit PO DAILY #180 tab-cap 11/03/19 mcg (1,000 unit) capsule medroxyprogesterone 150 mg/mL 150 mg IM [id number] #1 vial 11/03/19 intramuscular suspension topiramate 100 mg tablet 100 mg PO BID #180 tab-cap 11/03/19 lamotrigine 200 mg tablet 200 mg PO TID #270 tab-cap 07/27/20 pantoprazole 40 mg tablet,delayed 40 mg PO DAILY #30 tab 10/26/20 release Current Visit Medications: Current Medications Generic Name Dose Route Start Last Admin Trade Name Freq PRN Reason Stop Dose Admin Ringer's Solution 1,000 mls @ 100 mls/hr 12/08/20 13:30 12/08/20 13:42 IV 100 mls/hr INFUSION NABOR Administration PFSH Active Problems Active Problems: Problem Status Onset Code GERD (gastroesophageal reflux disease) K21.9 Vitamin D deficiency, unspecified 05/22/09 E55.9 Total urinary incontinence N39.498 Seizure R56.9 Injury of elbow 06/04/79 S59.909A Constipation 07/07/14 K59.00 Developmental disorder F89 Cerebral palsy G80.9 Epilepsy G40.909 Medical History Medical History At risk for osteopenia DEPO PROVERA X5 YRS Cerebral palsy Constipation (07/07/14) Developmental disorder Epilepsy GERD (gastroesophageal reflux disease) Impacted esophageal foreign body Injury of elbow (06/04/79) R FOREARM FX Resp obstr-inhal obj NEC ENDOSCOPIES FOR REMOVAL OF FOREIGN BODIES Seizure CP W/ MOVT DISORDER; SEIZURES. Total urinary incontinence Vitamin D deficiency, unspecified (05/22/09) Surgical History Surgical History EGD - MAC (07/15/12) Removal of foreign body X 3 TOE SURGERY (11/04/12) RIGHT TOE FX Tooth extraction Tobacco Smoking/Tobacco Use Status: Never Passive smoking exposure: Yes Alcohol Alcohol Intake: never Substance Use Substance use: Never Vital Signs and Lab Results Vital Signs Most Recent Vital Signs in EMR: Most Recent Vital Signs Temp Pulse Resp BP Pulse Ox 36.5 C 103 H 20 140/99 H 97 12/08/20 13:12 12/08/20 13:46 12/08/20 13:46 12/08/20 13:46 12/08/20 13:46 Lab Results Result Diagrams: 12/08/20 14:00 12/08/20 14:00 Blood Type / Crossmatch: No Data to Display Complete Blood Count: No Data to Display Complete Metabolic Panel: No Data to Display Liver Function Panel: No Data to Display Coagulation Panel: No Data to Display Cardiac Panel: No Data to Display Arterial Blood Gas: No Data to Display Venous Blood Gas: No Data to Display Pancreas Panel: No Data to Display Thyroid Panel: No Data to Display Infectious Disease: Coronavirus (COVID-19)(PCR) Pending 12/08/20 14:00 12/08/20 Coronavirus 2019 Source Nasopharyx 12/08/20 14:00 12/08/20 Blood Cultures: No Data to Display Toxicology Panel: No Data to Display Panel: No Data to Display Anesthesia Assessment and Plan Anesthesia History Personal History: No History of Anesthesia Complications and PONV Family History: No Family History of Anesthesia Complications Exercise Tolerance Exercise Tolerance: Metabolic Equivalents>4 Pertinent Negatives Pertinent Negatives: No Symptoms of GERD (Well controlled with medications), No Major Cardiovascular Symptoms or Complaints, No Major Pulmonary Symptoms or Complaints and No History of CVA/TIA Cardiac & Pulmonary Exam Cardiac Exam: Normal S1/S2 Heart Sounds Pulmonary Exam: Clear Bilateral Breath Sounds Airway Exam Known Difficult Airway: No Mallampati Class: 2 Mouth Opening: Normal (> 3cm) Thyromental Distance: Greater than 3 cm Neck Range of Motion: Full ROM Neck Circumference: Normal Teeth Condition: Normal Dentition ASA Classification ASA Score: ASA 2 Emergency Case?: No NPO Status NPO Status: NPO Clear Liquids>2 hours Status Status: Not Relevant due to Medical History Anesthesia Plan Resuscitation Status: Full Code Anesthesia Technique: General Anesthesia Airway Planned: Endotracheal Tube Monitors Used: Standard Monitors
[2020-12-08 14:21] VITALS: BMI 22.1
[2020-12-08 14:23] LABS: ALT 35 U/L (14-59); AST 14 U/L (15-37); Albumin 3.8 g/dL (3.4-5.0); Alkaline Phosphatase 93 U/L (46-116); Bilirubin, Direct 0.2 mg/dL (0.0-0.2); Bilirubin, Total 0.8 mg/dL (0.2-1.0); Total Protein 7.9 g/dL (6.4-8.2)
[2020-12-08 14:31] LABS: ALT 35 U/L (14-59); AST 12 U/L (15-37); Albumin 3.9 g/dL (3.4-5.0); Alkaline Phosphatase 94 U/L (46-116); Anion Gap 12.3 mmol/L (3-11); BUN 21 mg/dL (7-18); Bilirubin, Total 0.8 mg/dL (0.2-1.0); CO2 20.7 mmol/L (21.0-32.0); CREATININE 0.8 mg/dL (0.55-1.02); Calcium 9.2 mg/dL (8.5-10.1); Chloride 108 mmol/L (98-107); Glucose 92 mg/dL (74-106); Potassium 3.7 mmol/L (3.5-5.1); Sodium 141 mmol/L (136-145); TSH (W/Ref FT4) 1.13 uIU/mL (0.36-3.74)
[2020-12-08 14:44] VITALS: BP 119/47; PULSE 96; RESP 20; TEMP 36.4; O2SAT 97
[2020-12-08 14:49] VITALS: BP 111/54; PULSE 86; RESP 20; TEMP 36.4; O2SAT 97
--- NOTE | 2020-12-08 14:49 | W.PM.ENDDOP ---
Date of service: 12/08/20 Time of Service: 14:49 Endoscopy Report DATE OF PROCEDURE: 12/08/20 PRE-OP DIAGNOSIS: Esophageal foreign body POST-OP DIAGNOSIS: same PROCEDURE: EGD and foreign body removal SURGEON: Juana Escobar ANESTHESIA TYPE: General LMA/ETT ESTIMATED BLOOD LOSS: 0 PATHOLOGY: none sent COMPLICATIONS: None DISPOSITION: floor PROCEDURE DESCRIPTION: Betzaida is a patient who is well-known to me. She has a history of cerebral palsy. She has a history of esophageal foreign body. She is on a PPI. She comes into the ED today with 24 hours of not being able to eat or drink or take her medications. She is drooling and cannot control her secretions. She ate pecan ice cream night, her mother thinks she may have some pecans stuck. she has had no previous neck surgery or XRT. She has has a history of esophageal foreign body. She is on a PPI. She has had no problems with anesthetic in the past. informed consent is obtained from her mother explaining risks and benefits included but not limited to: Bleeding, infection, perforation, aspiration, and complications of anesthesia. Patient is brought to the operative room suite. General anesthetic is administered per the department of anesthesia. Timeout is performed. The previous lubricated Olympus scope was easily inserted in the oropharynx and passed down into the esophagus. (During intubation there was no signs of any foreign body in the upper esophageal area pharynx/airways.) The upper esophagus appears normal. In the distal one third of the esophagus of food bolus was encountered that easily passed down into the stomach. The area where it was located is red and inflamed and had some mild ulceration. There is no signs of obstruction. The scope was easily passed into the stomach. The stomach on a appears normal, and there is no signs of any gastritis or ulcers. She does not have a hiatal hernia. She does have multiple polyps. She has been on longstanding PPI therapy. The antrum appears normal. The scope was passed into the third portion of the duodenum. Free flow of bile was noted. There is no signs of any ulcers or duodenitis. The scope is Retracted, and the Air is evacuated. There is no signs of bleeding at the foreign body site. The scope was drawn and patient suctioned. Patient tolerated procedure well without complication and is transferred to the stable condition. Findings were discussed with her mother. She should maintain on liquids for the next 24 hours. She will be discharged home later today.
[2020-12-08 14:54] VITALS: BP 116/65; PULSE 90; RESP 20; TEMP 36.4; O2SAT 97
--- NOTE | 2020-12-08 15:06 | DSE_ITS ---
Date of service: 12/08/20 Time of Service: 15:07 DS: Diagnosis Discharge Diagnosis (1) Esophageal foreign body: Status: Acute (2) GERD (gastroesophageal reflux disease): Status: Chronic (3) Total urinary incontinence: Status: Chronic (4) Seizure: Status: Chronic (5) Constipation: Status: Chronic (6) Developmental disorder: Status: Chronic (7) Cerebral palsy: Status: Chronic (8) Epilepsy: Status: Chronic Discharge Plan Disposition Patient Disposition: [facility] INPATIENT Condition: Stable Discharge Details Clinical Impression: Esophageal foreign body Primary Care Provider: Cecy Fulton ED Provider: Myranda Glasgow Home Meds and New Rx's Prescriptions: No Action Women's Multivitamin Gummies 200 mcg tablet,chewable See Rx Instructions PO DAILY Qty: 90 RF: 5 triamcinolone acetonide 15 GM cream 1 eric Topical PRN PRNQty: 3 RF: 4 adult diaper liners 1 dose Topical TID Qty: 90 RF: 12 medroxyprogesterone [Depo-Provera] 150 mg/mL suspension 150 mg IM [id number] Qty: 1 RF: 4 topiramate [Topamax] 100 mg tablet 100 mg PO BID Qty: 180 RF: 4 cholecalciferol (vitamin D3) 25 mcg (1,000 unit) capsule 2,000 unit PO DAILY Qty: 180 RF: 12 lamotrigine 200 mg tablet 200 mg PO TID Qty: 270 RF: 12 pantoprazole 40 mg tablet,delayed release (DR/EC) 40 mg PO DAILY Qty: 30 RF: 12 polyethylene glycol 3350 17 GM powder in packet 17 gm PO PRN PRNRF: 0 DS: Data Vitals/I&O Vitals and I&O: Vital Signs Temperature 36.4 C L 12/08/20 14:54 Temperature Source Tympanic 12/08/20 13:12 Pulse 90 12/08/20 14:54 Respiratory Rate 20 12/08/20 14:54 Respiratory Effort 12/08/20 13:49 Respiratory Pattern Normal 12/08/20 13:49 Blood Pressure 116/65 12/08/20 14:54 Blood Pressure Position Sitting 12/08/20 13:12 Pulse Oximetry 97 12/08/20 14:54 Oxygen Delivery Method Nasal Cannula 12/08/20 14:54 Oxygen Flow Rate 0 12/08/20 13:46 Pain Level 0 12/08/20 14:54 Intake & Output 12/07/20 12/08/20 12/08/20 23:59 11:59 23:59 Weight 62.142 kg Other: Emesis Description None Data Completed and Pending Labs on day of discharge: Labs from last 24 hours 12/08/20 12/08/20 12/08/20 14:00 14:00 14:00 Sodium 141 Potassium 3.7 Chloride 108 H Carbon Dioxide 20.7 L Anion Gap 12.3 H BUN 21 H Creatinine 0.8 Estimated GFR/1.73 m2 >= 60.00 Glucose 92 Calcium 9.2 Total Bilirubin 0.8 0.8 Conjugated Bilirubin 0.2 AST 14 L 12 L ALT 35 35 Alkaline Phosphatase 93 94 Total Protein 7.9 8.0 Albumin 3.8 3.9 TSH 1.13 COVID-19 Source Nasopharyx SARS-CoV-2 (PCR) Pending 12/08/20 13:30 Sodium Cancelled Potassium Cancelled Chloride Cancelled Carbon Dioxide Cancelled Anion Gap Cancelled BUN Cancelled Creatinine Cancelled Estimated GFR/1.73 m2 Cancelled Glucose Cancelled Calcium Cancelled Total Bilirubin Cancelled Conjugated Bilirubin AST Cancelled ALT Cancelled Alkaline Phosphatase Cancelled Total Protein Cancelled Albumin Cancelled TSH Cancelled COVID-19 Source SARS-CoV-2 (PCR) [facility] Medical History At risk for osteopenia DEPO PROVERA X5 YRS Cerebral palsy Constipation (07/07/14) Developmental disorder Epilepsy GERD (gastroesophageal reflux disease) Impacted esophageal foreign body Injury of elbow (06/04/79) R FOREARM FX Resp obstr-inhal obj NEC ENDOSCOPIES FOR REMOVAL OF FOREIGN BODIES Seizure CP W/ MOVT DISORDER; SEIZURES. Total urinary incontinence Vitamin D deficiency, unspecified (05/22/09) Surgical History EGD - MAC (07/15/12) Removal of foreign body X 3 TOE SURGERY (11/04/12) RIGHT TOE FX Tooth extraction Family History Mother Hyperlipidemia Father , age 64 Essential hypertension Depression Hyperlipidemia Vascular disease Lung cancer Stroke Sister Essential hypertension Maternal Grandfather Hyperlipidemia Stroke Chronic obstructive lung disease Paternal Grandfather Essential hypertension Hyperlipidemia Stroke Chronic obstructive lung disease Maternal Grandmother Diabetes Essential hypertension Hyperlipidemia Paternal Grandmother Essential hypertension Hyperlipidemia Stroke MATERNAL GREAT GRANDMOTHER No problems noted. Social History Smoking/Tobacco Use Status: Never Smoking risk assessment performed?: Yes Alcohol Intake: never Drug use: Never Caregiver/Support person: Yes Household members: family and other Details: Mother Housing: house Communication Needs: Cannot Read Do you need help understanding health information?: Always Pets and animals: Yes Pets and animals: cat(s) Sexually active: No Current gender identity: female What is your relationship status?: never How often do you talk on the phone with friends or family?: never How often do you get together with friends or relatives?: three or more times per week How often do you attend sabianist or jain services?: decline to answer Do you belong to any clubs or organized social groups?: no Panel score (0-1 are the most socially isolated patients): 1 What type of physical activity do you participate in: none Seatbelt use: always Do you feel safe at home: Yes Do you feel safe in your relationship?: Yes
[2020-12-08 15:07] LABS: COVID-19 PCR Negative (Negative)
--- NOTE | 2020-12-08 15:11 | W.ANESPOSTOP ---
Postoperative Evaluation Date, Time and Location Date Performed: 12/08/20 Time Performed: 15:11 Patient Location: Med/Surg Vital Signs Most Recent Imported Vital Signs: Most Recent Vital Signs Temp Pulse Resp BP Pulse Ox 36.4 C L 90 20 116/65 97 12/08/20 14:54 12/08/20 14:54 12/08/20 14:54 12/08/20 14:54 12/08/20 14:54 Pain Score Most Recent Pain Score: Most Recent Pain Score Pain Level 0 12/08/20 14:54 Assessment Mental Status: Awake (Alert & Oriented to Patient Baseline) Airway and Respiratory Function: Patent airway with normal (patient baseline) respiratory exam Cardiovascular Function: Hemodynamically Stable Hydration Status: Adequately Hydrated Nausea & Vomiting: No Nausea or Vomiting Pain: Pt. Denies Any Pain Peripheral Nerve Block: Patient did not receive a nerve block
--- NOTE | 2020-12-08 15:22 | DSE_ITS ---
DS: Diagnosis Discharge Diagnosis (1) Esophageal foreign body: Status: Acute (2) GERD (gastroesophageal reflux disease): Status: Chronic (3) Total urinary incontinence: Status: Chronic (4) Seizure: Status: Chronic (5) Constipation: Status: Chronic (6) Developmental disorder: Status: Chronic (7) Cerebral palsy: Status: Chronic (8) Epilepsy: Status: Chronic Discharge Plan Disposition Patient Disposition: HOME Condition: Stable Discharge Details Admit Date/Time: 12/08/20 15:08 Admit Provider: Juana Escobar Attending Provider: Juana Escobar Primary Care Provider: Cecy Fulton [facility] Course Hospital Course: Please see H&P for complete. Patient came in with esophageal foreign body she has a history of such. Her mother is her caregiver is acutely aware of her medical needs. She underwent uneventful EGD for esophageal foreign body removal. Please see the operative report for details of the procedure. Patient will be discharged home today on clear liquids for 24 hours. Slowly advance diet as tolerated. continue on PPI. Home Meds and New Rx's Prescriptions: No Action Women's Multivitamin Gummies 200 mcg tablet,chewable See Rx Instructions PO DAILY Qty: 90 RF: 5 triamcinolone acetonide 15 GM cream 1 eric Topical PRN PRNQty: 3 RF: 4 adult diaper liners 1 dose Topical TID Qty: 90 RF: 12 medroxyprogesterone [Depo-Provera] 150 mg/mL suspension 150 mg IM [id number] Qty: 1 RF: 4 topiramate [Topamax] 100 mg tablet 100 mg PO BID Qty: 180 RF: 4 cholecalciferol (vitamin D3) 25 mcg (1,000 unit) capsule 2,000 unit PO DAILY Qty: 180 RF: 12 lamotrigine 200 mg tablet 200 mg PO TID Qty: 270 RF: 12 pantoprazole 40 mg tablet,delayed release (DR/EC) 40 mg PO DAILY Qty: 30 RF: 12 polyethylene glycol 3350 17 GM powder in packet 17 gm PO PRN PRNRF: 0 Discharge Instructions Additional Instructions: -Liquid diet for the next 24 hours. -Continue all her medications as regularly scheduled -Slowly advance diet as patient tolerates Activity:: Activity as Tolerated Equipment/Supplies:: No Equipment Needed Diet:: Liquid diet for 24-hour Discharge Orders Discharge Orders: Discharge Order (Routine); Ordered 12/08/20 Ordered By: Juana Escobar DS: Summary Time Spent with Patient providing and/or coordinating discharge services: Less than 30 minutes Status at Discharge Functional status at discharge: wheelchair bound Overall status at discharge: patient is progressing back to baseline Mental Status: other (Baseline for patient/she is smiling) Speech and Movement: other (Baseline for patient) Mood: other (Baseline for patient/she is smiling) Affect: other (She is now smiling) Exam Psych Mental Status: other (Baseline for patient/she is smiling) Speech and Movement: other (Baseline for patient) Mood: other (Baseline for patient/she is smiling) DS: Data Vitals/I&O Vitals and I&O: Vital Signs Temperature 36.4 C L 12/08/20 14:54 Temperature Source Tympanic 12/08/20 13:12 Pulse 90 12/08/20 14:54 Respiratory Rate 20 12/08/20 14:54 Respiratory Effort 12/08/20 13:49 Respiratory Pattern Normal 12/08/20 13:49 Blood Pressure 116/65 12/08/20 14:54 Blood Pressure Position Sitting 12/08/20 13:12 Pulse Oximetry 97 12/08/20 14:54 Oxygen Delivery Method Nasal Cannula 12/08/20 14:54 Oxygen Flow Rate 0 12/08/20 13:46 Pain Level 0 12/08/20 14:54 Intake & Output 12/07/20 12/08/20 12/08/20 23:59 11:59 23:59 Weight 62.142 kg Other: Emesis Description None Data Completed and Pending Labs on day of discharge: Labs from last 24 hours 12/08/20 12/08/20 12/08/20 14:00 14:00 14:00 Sodium 141 Potassium 3.7 Chloride 108 H Carbon Dioxide 20.7 L Anion Gap 12.3 H BUN 21 H Creatinine 0.8 Estimated GFR/1.73 m2 >= 60.00 Glucose 92 Calcium 9.2 Total Bilirubin 0.8 0.8 Conjugated Bilirubin 0.2 AST 14 L 12 L ALT 35 35 Alkaline Phosphatase 93 94 Total Protein 7.9 8.0 Albumin 3.8 3.9 TSH 1.13 COVID-19 Source Nasopharyx SARS-CoV-2 (PCR) Negative 12/08/20 13:30 Sodium Cancelled Potassium Cancelled Chloride Cancelled Carbon Dioxide Cancelled Anion Gap Cancelled BUN Cancelled Creatinine Cancelled Estimated GFR/1.73 m2 Cancelled Glucose Cancelled Calcium Cancelled Total Bilirubin Cancelled Conjugated Bilirubin AST Cancelled ALT Cancelled Alkaline Phosphatase Cancelled Total Protein Cancelled Albumin Cancelled TSH Cancelled COVID-19 Source SARS-CoV-2 (PCR) PFS Medical History At risk for osteopenia DEPO PROVERA X5 YRS Cerebral palsy Constipation (07/07/14) Developmental disorder Epilepsy GERD (gastroesophageal reflux disease) Impacted esophageal foreign body Injury of elbow (06/04/79) R FOREARM FX Resp obstr-inhal obj NEC ENDOSCOPIES FOR REMOVAL OF FOREIGN BODIES Seizure CP W/ MOVT DISORDER; SEIZURES. Total urinary incontinence Vitamin D deficiency, unspecified (05/22/09) Surgical History EGD - MAC (07/15/12) Removal of foreign body X 3 TOE SURGERY (11/04/12) RIGHT TOE FX Tooth extraction Family History Mother Hyperlipidemia Father , age 64 Essential hypertension Depression Hyperlipidemia Vascular disease Lung cancer Stroke Sister Essential hypertension Maternal Grandfather Hyperlipidemia Stroke Chronic obstructive lung disease Paternal Grandfather Essential hypertension Hyperlipidemia Stroke Chronic obstructive lung disease Maternal Grandmother Diabetes Essential hypertension Hyperlipidemia Paternal Grandmother Essential hypertension Hyperlipidemia Stroke MATERNAL GREAT GRANDMOTHER No problems noted. Social History Smoking/Tobacco Use Status: Never Smoking risk assessment performed?: Yes Alcohol Intake: never Drug use: Never Caregiver/Support person: Yes Household members: family and other Details: Mother Housing: house Communication Needs: Cannot Read Do you need help understanding health information?: Always Pets and animals: Yes Pets and animals: cat(s) Sexually active: No Current gender identity: female What is your relationship status?: never How often do you talk on the phone with friends or family?: never How often do you get together with friends or relatives?: three or more times per week How often do you attend roman catholic or baptist services?: decline to answer Do you belong to any clubs or organized social groups?: no Panel score (0-1 are the most socially isolated patients): 1 What type of physical activity do you participate in: none Seatbelt use: always Do you feel safe at home: Yes Do you feel safe in your relationship?: Yes
[2020-12-08 15:23] VITALS: BP 121/77; PULSE 92; RESP 16; TEMP 36.4; O2SAT 96
== END 2020-12-08 17:48 | disposition home or self-care (01) ==
LOC: ER 14:01 → MS 15:25 → DSU 12-10 14:48 → MS 12-10 14:49 → DSU 12-10 14:51
PROVIDERS: Emergency Provider Physician Assistant; PCP Family Medicine; Visit Provider Surgery
PROC: 0DC68ZZ Extirpation of Matter from Stomach, Via Natural or Artificial Opening Endoscopic (ICD-10-PCS; CPT 43247; principal; 2020-12-08 13:40)
DX: T18.128A Food in esophagus causing other injury, initial encounter (principal); G80.8 Other cerebral palsy; R62.50 Unspecified lack of expected normal physiological development in childhood; K21.9 Gastro-esophageal reflux disease without esophagitis; G40.909 Epilepsy, unspecified, not intractable, without status epilepticus; K59.00 Constipation, unspecified; E55.9 Vitamin D deficiency, unspecified; N39.498 Other specified urinary incontinence; K22.10 Ulcer of esophagus without bleeding
CPT/HCPCS: 43247; 36415; 80053; 80076; 82306; 87635; 99218; 99283; 84443; G0378; J2001

== ENCOUNTER 2021-08-23 03:44 | Outpatient (CLI) | payer MEDICARE, MEDICAID, SELFPAY ==
[2021-08-23 10:35] LABS: Abs Immature Grans 0.01 10^3/uL (0.0-0.06); Absolute Basophil Count 0.07 10^3/uL (0.0-0.2); Absolute Eosinophil Count 0.63 10^3/uL (0.0-0.7); Absolute Lymphocyte Count 3.09 10^3/uL (1.2-3.4); Absolute Neutrophil Count 4.18 10^3/uL (1.2-6.7); Basophils % 0.8; Eosinophils % 7.3; HCT 48.4 % (36.0-46.0); HGB 15.8 g/dL (11.2-15.7); Immature Grans % 0.1; MCH 30.1 pg (27.0-33.0); MCHC 32.6 % (32.0-36.0); MCV 92.2 fL (80-95); MPV 9.3 fL (8.0-11.0); Neutrophils % 48.8; Nucleated RBC 0 %; Platelet Count 284 10^3/uL (130-400); RBC 5.25 10^6/uL (3.93-5.22); RDW 12.4 % (11.7-14.6); RDW-SD 42.5 fL; WBC 8.58 10^3/uL (4.4-10.8)
[2021-08-23 12:00] LABS: ALT 54 U/L (14-59); AST 16 U/L (15-37); Albumin 4.2 g/dL (3.4-5.0); Alkaline Phosphatase 123 U/L (46-116); Anion Gap 10.2 mmol/L (3-11); BUN 13 mg/dL (7-18); Bilirubin, Total 0.3 mg/dL (0.2-1.0); CO2 24.8 mmol/L (21.0-32.0); CREATININE 0.9 mg/dL (0.55-1.02); Calcium 9.3 mg/dL (8.5-10.1); Chloride 107 mmol/L (98-107); Glucose 84 mg/dL (74-106); Potassium 4.2 mmol/L (3.5-5.1); Sodium 142 mmol/L (136-145); Total Protein 7.8 g/dL (6.4-8.2)
[2021-08-24 16:10] LABS: Lamotrigine 9.8 mcg/mL (2.5 - 15.0)
[2021-08-26 06:08] LABS: Topiramate 6.4 mcg/mL
[2021-08-26 06:43] LABS: Vitamin D 25 Total 77.5 ng/mL (30-100)
== END 2021-08-23 03:45 | disposition home or self-care (01) ==
LOC: LBO 03:44
PROVIDERS: PCP Family Medicine; Visit Provider Family Medicine
DX: F89 Unspecified disorder of psychological development (principal); G40.909 Epilepsy, unspecified, not intractable, without status epilepticus; E55.9 Vitamin D deficiency, unspecified
CPT/HCPCS: 36415; 80053; 80175; 82306; 80201; 85025

== ENCOUNTER 2022-09-05 01:21 | Outpatient (CLI) | payer MEDICARE, MEDICAID, SELFPAY ==
[2022-09-05 12:21] LABS: HCT 49.3 % (36.0-46.0); MCH 30.5 pg (27.0-33.0); MCHC 32.5 % (32.0-36.0); MCV 94 fL (80-95); MPV 10.2 fL (8.0-11.0); Platelet Count 286 10^3/uL (130-400); RBC 5.25 10^6/uL (3.93-5.22); RDW 12.7 % (11.7-14.6); RDW-SD 43.6 fL; WBC 9.67 10^3/uL (4.4-10.8)
[2022-09-05 12:47] LABS: ALT 45 U/L (14-59); AST 14 U/L (15-37); Alkaline Phosphatase 103 U/L (46-116); BUN 21 mg/dL (7-18); Bilirubin, Total 0.4 mg/dL (0.2-1.0); CREATININE 0.9 mg/dL (0.55-1.02); Calcium 9.5 mg/dL (8.5-10.1); Chloride 109 mmol/L (98-107); Estimated GFR 80.34 (mL/min/1.73m2); Glucose 96 mg/dL (74-106); Potassium 3.8 mmol/L (3.5-5.1); Sodium 143 mmol/L (136-145); Total Protein 7.8 g/dL (6.4-8.2)
[2022-09-08 16:37] LABS: Lamotrigine 7.2 mcg/mL (3.0-15.0)
[2022-09-10 08:28] LABS: Topiramate 7.4 mcg/mL
== END 2022-09-05 01:22 | disposition home or self-care (01) ==
LOC: LOS 01:22
PROVIDERS: PCP Family Medicine; Visit Provider Family Medicine
DX: G40.909 Epilepsy, unspecified, not intractable, without status epilepticus (principal); K59.00 Constipation, unspecified; Z79.899 Other long term (current) drug therapy; Z51.81 Encounter for therapeutic drug level monitoring
CPT/HCPCS: 36415; 80053; 80175; 85027; 80201

== ENCOUNTER 2023-02-14 09:07 | Day surgery (SDC) | payer MEDICARE, MEDICAID, SELFPAY ==
[2023-02-14] VITALS (12 sets, daily range): BP systolic 100–141; BP diastolic 58–81; PULSE 104–115; RESP 18–33; TEMP 36.5; O2SAT 89–96; BMI 21.5
--- NOTE | 2023-02-14 09:24 | W.ED.GENAD ---
Discharge Plan Disposition Patient Disposition: Home Condition: Improving Discharge Details Clinical Impression: Esophageal foreign body Primary Care Provider: Cecy Fulton ED Provider: Aldo Metzger General Date/Time Provider Initiated Documentation: 02/14/23 09:24. HPI Narrative: Duplicate note please see other note for details Related Data Home Medications Medication Instructions Recorded Confirmed triamcinolone acetonide 0.1 % 1 eric topical PRN PRN ##3 12/10/12 02/14/23 topical cream polyethylene glycol 3350 17 gram 17 gm PO PRN PRN 10/15/14 02/14/23 oral powder packet cholecalciferol (vitamin D3) 25 1,000 unit PO DAILY #90 tab-caps 08/28/22 02/14/23 mcg (1,000 unit) capsule lamotrigine 200 mg tablet See Rx Instructions .Route 08/28/22 02/14/23 .COMPLEX #270 tabs medroxyprogesterone 150 mg/mL 150 mg IM [id number] #1 vial 08/28/22 02/14/23 intramuscular suspension (Depo-Provera) multivitamin with minerals-folic See Rx Instructions PO DAILY #90 08/28/22 02/14/23 acid 200 mcg chewable tablet tabs (Women's Multivitamin Gummies) nystatin 100,000 unit/gram topical 1 applic topical BID #60 grams 08/28/22 02/14/23 powder pantoprazole 40 mg tablet,delayed 40 mg PO DAILY erosive eophagitis 08/28/22 02/14/23 release #30 tabs topiramate 100 mg tablet (Topamax) 100 mg PO BID #180 tab-caps 08/28/22 02/14/23 Previous Rx's Medication Instructions Recorded cholecalciferol (vitamin D3) 25 1,000 unit PO DAILY #90 tab-caps 08/28/22 mcg (1,000 unit) capsule lamotrigine 200 mg tablet See Rx Instructions .Route 08/28/22 .COMPLEX #270 tabs medroxyprogesterone 150 mg/mL 150 mg IM [id number] #1 vial 08/28/22 intramuscular suspension (Depo-Provera) multivitamin with minerals-folic See Rx Instructions PO DAILY #90 08/28/22 acid 200 mcg chewable tablet tabs (Women's Multivitamin Gummies) nystatin 100,000 unit/gram topical 1 applic topical BID #60 grams 08/28/22 powder pantoprazole 40 mg tablet,delayed 40 mg PO DAILY erosive eophagitis 08/28/22 release #30 tabs topiramate 100 mg tablet (Topamax) 100 mg PO BID #180 tab-caps 08/28/22 Allergies Allergy/AdvReac Type Severity Reaction Status Date / Time amoxicillin Allergy Intermediate rash Verified 02/14/23 09:18 prochlorperazine Allergy Unknown Verified 02/14/23 09:18 General Stated Complaint: ForeignBody ELIA: 3 PFSH All Active Problems Esophageal foreign body (Acute) GERD (gastroesophageal reflux disease) (Chronic) Vitamin D deficiency, unspecified (Chronic 05/22/09) Total urinary incontinence (Chronic) Seizure (Chronic) CP W/ MOVT DISORDER; SEIZURES. Constipation (Chronic 07/07/14) Developmental disorder (Chronic) Cerebral palsy (Chronic) Epilepsy (Chronic) Medical History At risk for osteopenia DEPO PROVERA X5 YRS Impacted esophageal foreign body Resp obstr-inhal obj NEC ENDOSCOPIES FOR REMOVAL OF FOREIGN BODIES Surgical History EGD - MAC (07/15/12) Removal of foreign body X 3 TOE SURGERY (11/04/12) RIGHT TOE FX Tooth extraction Family History Mother Hyperlipidemia Father , age 64 Essential hypertension Depression Hyperlipidemia Vascular disease Lung cancer Stroke Sister Essential hypertension Maternal Grandfather Hyperlipidemia Stroke Chronic obstructive lung disease Paternal Grandfather Essential hypertension Hyperlipidemia Stroke Chronic obstructive lung disease Maternal Grandmother Diabetes Essential hypertension Hyperlipidemia Paternal Grandmother Essential hypertension Hyperlipidemia Stroke MATERNAL GREAT GRANDMOTHER No problems noted. Social History Smoking/Tobacco Use Status: Never Second Hand Exposure: Yes Smoking risk assessment performed?: Yes Alcohol Intake: never Drug use: Never Substance use type: does not use Caregiver/Support person: Yes Household members: family Housing: house Communication Needs: Cannot Read and Language Barriers Do you need help understanding health information?: Always Pets and animals: Yes Pets and animals: cat(s) Sexually active: No What is your relationship status?: never How often do you talk on the phone with friends or family?: never How often do you get together with friends or relatives?: never How often do you attend hoahaoism or synagogue services?: decline to answer Do you belong to any clubs or organized social groups?: no Panel score (0-1 are the most socially isolated patients): 0 Duration: < 15 minutes/day Ailyn/Nondenominational: Hinduism Special ailyn needs: No Seatbelt use: always Drive intox or ride w/intox wheelchair driver: No Do you feel safe at home: Yes Do you feel safe in your relationship?: Yes Course Vital Signs Vital signs: Vital Signs Pulse 115 H 02/14/23 09:13 Respiratory Rate 02/14/23 09:13 Pulse Oximetry 89 L 02/14/23 09:13 Pulse 115 H 02/14/23 09:13 Respiratory Rate 02/14/23 09:13 Respiratory Effort Normal 02/14/23 09:18 Blood Pressure Position Sitting 02/14/23 09:13 Pulse Oximetry 89 L 02/14/23 09:13 Oxygen Delivery Method Room Air 02/14/23 09:13 Oxygen Flow Rate 0 02/14/23 09:13
--- NOTE | 2023-02-14 09:30 | DI.RAD_ITS ---
Exam(s) XR SOFT TISSUE NECK EXAM: XR SOFT TISSUE NECK CLINICAL HISTORY: ? FB. TECHNIQUE: 2D digital imaging was performed. COMPARISON: No exams were available for comparison FINDINGS: BONES: No acute fracture is present. Degenerative changes of the spine SOFT TISSUE:No visible radiopaque foreign body. Airway is patent without radiopaque foreign body. Ep iglottis is not enlarged. Prevertebral soft tissues appear unremarkable. IMPRESSION: Unremarkable radiographs of soft tissue neck. DATA REPOSITORY: RADIATION DOSE DELIVERED:
--- NOTE | 2023-02-14 09:30 | DI.RAD_ITS ---
Exam(s) XR CHEST 2V PA LATERAL EXAM: XR CHEST 2V PA LATERAL CLINICAL HISTORY: sob TECHNIQUE: 2D digital imaging was performed. COMPARISON: CR SOFT TISSUE NECK RAD. from 10/15/2014 CR ABD FLAT UPRIGHT PA CHEST from 10/15/2014 CR CHEST 2 VIEWS PA,LAT from 12/12/2016 CR LEFT SHOULDER COMPLETE from 12/12/2016 FINDINGS: Exam limited by poor pulmonary inflation. HEART: Normal size. Aorta: Not dilated. PULMONARY VASCULATURE: Normal. LUNGS: Mildly increased densities above right diaphragm could represent infiltrate versus atelectasis . No focal consolidation. PLEURAL SPACE: No pleural effusion or pneumothorax. BONE:Unremarkable for age. IMPRESSION: Limited exam. Question of from right basilar infiltrate versus atelectasis. DATA REPOSITORY: RADIATION DOSE DELIVERED:
--- NOTE | 2023-02-14 09:30 | W.ED.GENAD ---
Discharge Plan Disposition Patient Disposition: Home Condition: Improving Discharge Details Clinical Impression: Esophageal foreign body Primary Care Provider: Cecy Fulton ED Provider: Aldo Metzger Medical Decision Making 47-year-old presents to the emergency room with what appears to be an esophageal impaction since last night. X-rays were obtained that did not reveal any abnormality of 5 soft tissue neck door of the chest. The case was discussed with Dr. Becerra the on-call surgeon who took the patient to the operating room for endoscopy. Patient well-appearing after her procedure. Will be discharged. HPI General Date/Time Provider Initiated Documentation: 02/14/23 09:24. HPI Narrative: History is obtained via the mother who is at the bedside. Betzaida is a 47-year-old lady with underlying seizure disorder, cerebral palsy, developmental delay, history of removal of foreign bodies in the esophagus. Last time this happened was in 2020. Mostly was being fed some grinding chicken last evening when she suddenly started drooling unable to tolerate p.o. fluids. Her mom prepares dinner looked into the food and found a piece of bone. The concern is that Betzaida may have swallowed a chicken bone and or has a recurrent esophageal impaction. She was drooling throughout the evening last night family fell asleep. Upon waking this morningstill unable to tolerate any p.o. fluids. Related Data Home Medications Medication Instructions Recorded Confirmed triamcinolone acetonide 0.1 % 1 eric topical PRN PRN ##3 12/10/12 02/14/23 topical cream polyethylene glycol 3350 17 gram 17 gm PO PRN PRN 10/15/14 02/14/23 oral powder packet cholecalciferol (vitamin D3) 25 1,000 unit PO DAILY #90 tab-caps 08/28/22 02/14/23 mcg (1,000 unit) capsule lamotrigine 200 mg tablet See Rx Instructions .Route 08/28/22 02/14/23 .COMPLEX #270 tabs medroxyprogesterone 150 mg/mL 150 mg IM [id number] #1 vial 08/28/22 02/14/23 intramuscular suspension (Depo-Provera) multivitamin with minerals-folic See Rx Instructions PO DAILY #90 08/28/22 02/14/23 acid 200 mcg chewable tablet tabs (Women's Multivitamin Gummies) nystatin 100,000 unit/gram topical 1 applic topical BID #60 grams 08/28/22 02/14/23 powder pantoprazole 40 mg tablet,delayed 40 mg PO DAILY erosive eophagitis 08/28/22 02/14/23 release #30 tabs topiramate 100 mg tablet (Topamax) 100 mg PO BID #180 tab-caps 08/28/22 02/14/23 sucralfate 1 gram tablet (Carafate) 1 g PO QACHS #56 tabs 02/14/23 Previous Rx's Medication Instructions Recorded cholecalciferol (vitamin D3) 25 1,000 unit PO DAILY #90 tab-caps 08/28/22 mcg (1,000 unit) capsule lamotrigine 200 mg tablet See Rx Instructions .Route 08/28/22 .COMPLEX #270 tabs medroxyprogesterone 150 mg/mL 150 mg IM [id number] #1 vial 08/28/22 intramuscular suspension (Depo-Provera) multivitamin with minerals-folic See Rx Instructions PO DAILY #90 08/28/22 acid 200 mcg chewable tablet tabs (Women's Multivitamin Gummies) nystatin 100,000 unit/gram topical 1 applic topical BID #60 grams 08/28/22 powder pantoprazole 40 mg tablet,delayed 40 mg PO DAILY erosive eophagitis 08/28/22 release #30 tabs topiramate 100 mg tablet (Topamax) 100 mg PO BID #180 tab-caps 08/28/22 sucralfate 1 gram tablet (Carafate) 1 g PO QACHS #56 tabs 02/14/23 Allergies Allergy/AdvReac Type Severity Reaction Status Date / Time amoxicillin Allergy Intermediate rash Verified 02/14/23 09:18 prochlorperazine Allergy Unknown Verified 02/14/23 09:18 General Stated Complaint: ForeignBody ELIA: 3 Review of Systems Narrative: Unable to get reliable review of systems given the patient is nonverbal [facility] All Active Problems Esophageal foreign body (Acute) GERD (gastroesophageal reflux disease) (Chronic) Vitamin D deficiency, unspecified (Chronic 05/22/09) Total urinary incontinence (Chronic) Seizure (Chronic) CP W/ MOVT DISORDER; SEIZURES. Constipation (Chronic 07/07/14) Developmental disorder (Chronic) Cerebral palsy (Chronic) Epilepsy (Chronic) Medical History At risk for osteopenia DEPO PROVERA X5 YRS Impacted esophageal foreign body Resp obstr-inhal obj NEC ENDOSCOPIES FOR REMOVAL OF FOREIGN BODIES Surgical History EGD - MAC (07/15/12) Removal of foreign body X 3 TOE SURGERY (11/04/12) RIGHT TOE FX Tooth extraction Family History Mother Hyperlipidemia Father , age 64 Essential hypertension Depression Hyperlipidemia Vascular disease Lung cancer Stroke Sister Essential hypertension Maternal Grandfather Hyperlipidemia Stroke Chronic obstructive lung disease Paternal Grandfather Essential hypertension Hyperlipidemia Stroke Chronic obstructive lung disease Maternal Grandmother Diabetes Essential hypertension Hyperlipidemia Paternal Grandmother Essential hypertension Hyperlipidemia Stroke MATERNAL GREAT GRANDMOTHER No problems noted. Social History Smoking/Tobacco Use Status: Never Second Hand Exposure: Yes Smoking risk assessment performed?: Yes Alcohol Intake: never Drug use: Never Substance use type: does not use Caregiver/Support person: Yes Household members: family Housing: house Communication Needs: Cannot Read and Language Barriers Do you need help understanding health information?: Always Pets and animals: Yes Pets and animals: cat(s) Sexually active: No What is your relationship status?: never How often do you talk on the phone with friends or family?: never How often do you get together with friends or relatives?: never How often do you attend congregational or nondenominational services?: decline to answer Do you belong to any clubs or organized social groups?: no Panel score (0-1 are the most socially isolated patients): 0 Duration: < 15 minutes/day Ailyn/Congregational: Roman Catholic Special ailyn needs: No Seatbelt use: always Drive intox or ride w/intox funeral car driver: No Do you feel safe at home: Yes Do you feel safe in your relationship?: Yes Exam Narrative Exam Narrative: General: Awake and alert calm, no apparent distress, well developed, pleasant and cooperative Head Size/Shape: normocephalic, atraumatic Eyes Pupils: PERRLA Extraocular Mobility: intact and symmetrical Conjunctiva: non-injected, anicteric, no discharge Ears, Nose, Throat Nares: patent bilaterally Oral Cavity: moist Neck: no masses, no crepitus Lymph Nodes: no cervical lymphadenopathy Respiratory Respiratory Effort: no dyspnea Auscultation: clear to auscultation bilaterally, normal breath sounds, no wheezing, no rales/crackles Cardiovascular Heart Auscultation: regular rate and rhythm, normal S1, normal S2, no murmurs, no rubs, no gallops, Pulse Quality: +2 equal bilaterally, location(s) radial Abdomen Inspection and Palpation: soft, non-tender, non-distended, no hepatosplenomegaly Musculoskeletal System Joints, Bones, and Muscles: no deformities Extremities: warm and well-perfused, no cyanosis, capillary refill <2 seconds Skin Skin Inspection: no rash, no lesions, no bruising Neurological Motor: normal tone, normal strength, moving all extremities equally Psychiatric: good insight, good judgement, normal mood and affect Course Vital Signs Vital signs: Vital Signs Pulse 115 H 02/14/23 09:13 Respiratory Rate 24 02/14/23 09:13 Pulse Oximetry 89 L 02/14/23 09:13 Pulse 115 H 02/14/23 09:13 Respiratory Rate 24 02/14/23 09:13 Respiratory Effort Normal 02/14/23 09:18 Blood Pressure Position Sitting 02/14/23 09:13 Pulse Oximetry 89 L 02/14/23 09:13 Oxygen Delivery Method Room Air 02/14/23 09:13 Oxygen Flow Rate 0 02/14/23 09:13
--- NOTE | 2023-02-14 10:46 | DI.VRAD_ITS ---
PROCEDURE INFORMATION: Exam: XR Chest Exam date and time: 02/14/2023 10:25 AM Age: 47 years old Clinical indication: Shortness of breath TECHNIQUE: Imaging protocol: Radiologic exam of the chest. Views: 2 views. COMPARISON: CR CHEST 2 VIEWS PA,LAT 12/12/2016 6:03 PM FINDINGS: Lungs: Low lung volumes. No consolidation. Pleural spaces: Unremarkable. No pleural effusion. No pneumothorax. Heart/Mediastinum: Unremarkable. No cardiomegaly. Bones/joints: Unremarkable. IMPRESSION: No acute findings. Dictated and Authenticated by: Simon Mcclendon MD. Ordering:CATERINA Carlson MD
--- NOTE | 2023-02-14 10:46 | DI.VRAD_ITS ---
PROCEDURE INFORMATION: Exam: XR Soft Tissue Neck Exam date and time: 02/14/2023 10:30 AM Age: 47 years old Clinical indication: Other: ? Fb- chicken bone? ; Patient HX: PT is non verbal, super unsteady, known seizure disorder, unable to take meds this am, not able to hold still. Mom held her for images. Unable to get higher up for soft tissue neck- called and spoke with Dr. Yassine marmolejo per him. TECHNIQUE: Imaging protocol: Radiologic exam of the soft tissues of the neck. COMPARISON: CR XR CHEST 2V PA LATERAL 02/14/2023 10:25 AM FINDINGS: Airway: Normal. No abnormal narrowing. Soft tissues: Normal. Normal epiglottis. Bones/joints: Unremarkable. IMPRESSION: No acute findings. Dictated and Authenticated by: Simon Mcclendon MD. Ordering:CATERINA Carlson MD
--- NOTE | 2023-02-14 12:01 | W.SURGCON ---
Date of service: 02/14/23 Time of Service: 12:02 Assessment and Plan Assessment and plan (1) Esophageal foreign body: Status: Acute Assessment and plan: Betzaida is a pleasant 47 year old female who is developmentally delayed and non-verbal who is here today because she is unable to swallow. Her guardian/Mom thinks there might be a piece of chicken bone stuck in her esophagus. CXR and Neck Xray were negative Discussed the EGD procedure with the patients gurdian, including the complications. Risks, benefits and complications have been reviewed. Complications include but are not limited to bleeding, pain, perforation, sore throat, aspiration, and adverse reaction to the medications. Questions were entertained and answered to their satisfaction and they wished to proceed. No guarantees were given or implied. Will proceed with EGD and foreign body removal under general anesthesia with ETT (2) GERD (gastroesophageal reflux disease): Status: Chronic History of Present Illness Narrative: Hx was gotten from the Patients Mother/Guardian because the patient is non-verbal. Betzaida is a pleasant 47 year old female with developmental delay who is in the ER with her MOther/ Guardian. She was eating some chicken last night and after the first bite stopped eating. She started to drool. Mom kept an eye on her as sometimes the patient is able to throw up whatever has gotten stuck in her esophagus. She went all night without being able to swallow her secretions. Mom tried to give her something to drink this morning, but the patient was unable to swallow so she brought her in. Her sats were low when she first arrived but now are up in the ninety's again. She is tachycardic although that has also improved with almost 1 L of saline. CXR doesn't show a foreign body and lungs look clear. Consults Consult date: 02/14/23 Requesting physician: Aldo Metzger Review of Systems Constitutional Constitutional: Denies fever(s) and Denies headache(s) Eyes Eyes: Denies change in vision ENT Ears, Nose, Mouth, and Throat: Reports system reviewed and no additional complaints, except as documented and Denies headache(s) Cardiovascular Cardiovascular: Denies chest pain, Denies chest pain at rest, Denies irregular heart rhythm, Denies palpitations, Denies dyspnea and Denies dyspnea on exertion Respiratory Respiratory: Reports cough, Denies dyspnea and Denies dyspnea on exertion Gastrointestinal Gastrointestinal: Reports system reviewed and no additional complaints, except as documented Genitourinary Genitourinary: Reports system reviewed and no additional complaints, except as documented Musculoskeletal Musculoskeletal: Reports system reviewed and no additional complaints, except as documented Integumentary/Breasts Skin/Breast: Reports system reviewed and no additional complaints, except as documented Neurologic Neurologic: Reports system reviewed and no additional complaints, except as documented and Denies headache(s) Psychiatric Psychiatric: Reports system reviewed and no additional complaints, except as documented Endocrine Endocrine: Reports system reviewed and no additional complaints, except as documented and Denies palpitations Hematologic/Lymphatic Hematologic/Lymphatic: Reports system reviewed and no additional complaints, except as documented PFSH All Active Problems Esophageal foreign body (Acute) GERD (gastroesophageal reflux disease) (Chronic) Vitamin D deficiency, unspecified (Chronic 05/22/09) Total urinary incontinence (Chronic) Seizure (Chronic) CP W/ MOVT DISORDER; SEIZURES. Constipation (Chronic 07/07/14) Developmental disorder (Chronic) Cerebral palsy (Chronic) Epilepsy (Chronic) Medical History At risk for osteopenia DEPO PROVERA X5 YRS Impacted esophageal foreign body Resp obstr-inhal obj NEC ENDOSCOPIES FOR REMOVAL OF FOREIGN BODIES Surgical History EGD - MAC (07/15/12) Removal of foreign body X 3 TOE SURGERY (11/04/12) RIGHT TOE FX Tooth extraction Family History Mother Hyperlipidemia Father , age 64 Essential hypertension Depression Hyperlipidemia Vascular disease Lung cancer Stroke Sister Essential hypertension Maternal Grandfather Hyperlipidemia Stroke Chronic obstructive lung disease Paternal Grandfather Essential hypertension Hyperlipidemia Stroke Chronic obstructive lung disease Maternal Grandmother Diabetes Essential hypertension Hyperlipidemia Paternal Grandmother Essential hypertension Hyperlipidemia Stroke MATERNAL GREAT GRANDMOTHER No problems noted. Social History Smoking/Tobacco Use Status: Never Second Hand Exposure: Yes Smoking risk assessment performed?: Yes Alcohol Intake: never Drug use: Never Substance use type: does not use Caregiver/Support person: Yes Household members: family Housing: house Communication Needs: Cannot Read and Language Barriers Do you need help understanding health information?: Always Pets and animals: Yes Pets and animals: cat(s) Sexually active: No What is your relationship status?: never How often do you talk on the phone with friends or family?: never How often do you get together with friends or relatives?: never How often do you attend sabianism or taoism services?: decline to answer Do you belong to any clubs or organized social groups?: no Panel score (0-1 are the most socially isolated patients): 0 Duration: < 15 minutes/day Ailyn/Zoroastrian: Synagogue Special ailyn needs: No Seatbelt use: always Drive intox or ride w/intox operator and truck driver: No Do you feel safe at home: Yes Do you feel safe in your relationship?: Yes Exam Const General: cooperative and no acute distress Nutritional Appearance: average body habitus Orientation: alert HENMT Head: normocephalic and atraumatic Resp Effort & Inspection: normal respiratory effort Auscultation: clear to auscultation bilaterally Cardio Rate: regular rate Rhythm: regular rhythm GI Inspection: normal to inspection Palpation: soft, no hepatosplenomegaly and nontender Results Last Vital Signs Pulse 115 H 02/14/23 09:13 Resp 24 02/14/23 09:13 Pulse Ox 89 L 02/14/23 09:13 Imaging Chest x-ray: report reviewed and image reviewed Additional studies: Neck XRay- imaging reviewed and report reviewed
--- NOTE | 2023-02-14 12:11 | W.ANESPRE ---
General Info Date of Service Date Performed: 02/14/23 Height: 5 ft 7 in Weight: 62.4 kg Body Mass Index (BMI): 21.5 Meds Allergies and Home Medications Allergies Allergy/AdvReac Type Severity Reaction Status Date / Time amoxicillin Allergy Intermediate rash Verified 02/14/23 09:18 prochlorperazine Allergy Unknown Verified 02/14/23 09:18 Home Medication Medication Instructions Recorded triamcinolone acetonide 0.1 % 1 eric topical PRN PRN ##3 12/10/12 topical cream polyethylene glycol 3350 17 gram 17 gm PO PRN PRN 10/15/14 oral powder packet cholecalciferol (vitamin D3) 25 1,000 unit PO DAILY #90 tab-caps 08/28/22 mcg (1,000 unit) capsule lamotrigine 200 mg tablet See Rx Instructions .Route 08/28/22 .COMPLEX #270 tabs medroxyprogesterone 150 mg/mL 150 mg IM [id number] #1 vial 08/28/22 intramuscular suspension (Depo-Provera) multivitamin with minerals-folic See Rx Instructions PO DAILY #90 08/28/22 acid 200 mcg chewable tablet tabs (Women's Multivitamin Gummies) nystatin 100,000 unit/gram topical 1 applic topical BID #60 grams 08/28/22 powder pantoprazole 40 mg tablet,delayed 40 mg PO DAILY erosive eophagitis 08/28/22 release #30 tabs topiramate 100 mg tablet (Topamax) 100 mg PO BID #180 tab-caps 08/28/22 PFSH Active Problems Active Problems: Problem Status Onset Code Esophageal foreign body T18.108A GERD (gastroesophageal reflux disease) K21.9 Vitamin D deficiency, unspecified 05/22/09 E55.9 Total urinary incontinence N39.498 Seizure R56.9 Injury of elbow 06/04/79 S59.909A Constipation 07/07/14 K59.00 Developmental disorder F89 Cerebral palsy G80.9 Epilepsy G40.909 Medical History Medical History At risk for osteopenia DEPO PROVERA X5 YRS Impacted esophageal foreign body Resp obstr-inhal obj NEC ENDOSCOPIES FOR REMOVAL OF FOREIGN BODIES Surgical History Surgical History EGD - MAC (07/15/12) Removal of foreign body X 3 TOE SURGERY (11/04/12) RIGHT TOE FX Tooth extraction Tobacco Smoking/Tobacco Use Status: Never Passive smoking exposure: Yes Second hand exposure: Yes Alcohol Alcohol Intake: never Substance Use Substance use: Never Substance use type: does not use Vital Signs and Lab Results Vital Signs Most Recent Vital Signs in EMR: Most Recent Vital Signs Pulse Resp Pulse Ox 115 H 24 89 L 02/14/23 09:13 02/14/23 09:13 02/14/23 09:13 Lab Results Blood Type / Crossmatch: No Data to Display Complete Blood Count: No Data to Display Complete Metabolic Panel: No Data to Display Liver Function Panel: No Data to Display Coagulation Panel: No Data to Display Cardiac Panel: No Data to Display Arterial Blood Gas: No Data to Display Venous Blood Gas: No Data to Display Pancreas Panel: No Data to Display Thyroid Panel: No Data to Display Infectious Disease: No Data to Display Blood Cultures: No Data to Display Toxicology Panel: No Data to Display Panel: No Data to Display Anesthesia Assessment and Plan Anesthesia History Personal History: No History of Anesthesia Complications and PONV Family History: No Family History of Anesthesia Complications Exercise Tolerance Exercise Tolerance: Metabolic Equivalents<4 Pertinent Negatives Pertinent Negatives: No Symptoms of GERD, No Major Cardiovascular Symptoms or Complaints, No Major Pulmonary Symptoms or Complaints and No History of CVA/TIA Cardiac & Pulmonary Exam Cardiac Exam: Normal S1/S2 Heart Sounds Pulmonary Exam: Clear Bilateral Breath Sounds Implantable Cardiac Device Does patient have a Pacemaker or an ICD?: No Airway Exam Known Difficult Airway: No Mallampati Class: 2 Mouth Opening: Normal (> 3cm) Thyromental Distance: Greater than 3 cm Neck Range of Motion: Full ROM Neck Circumference: Normal Teeth Condition: Normal Dentition ASA Classification ASA Score: ASA 2 Emergency Case?: Yes NPO Status NPO Status: Full Stomach Status Status: Not Relevant due to Medical History Anesthesia Plan Resuscitation Status: Full Code Anesthesia Technique: General Anesthesia (RSI) Airway Planned: Endotracheal Tube Monitors Used: Standard Monitors Preoperative Comments:: Patient is non-verbal and all communication was through mother(guardian). Discussed risks/benefits, discussed no real alternatives to plan. Patients mother agreed.
--- NOTE | 2023-02-14 12:12 | W.PM.ENDDOP ---
Date of service: 02/14/23 Time of Service: 12:50 Endoscopy Report DATE OF PROCEDURE: 02/15/23 PRE-OP DIAGNOSIS: esophageal foreign body POST-OP DIAGNOSIS: same PROCEDURE: EGD with removal of foreign body and biopsies SURGEON: Sneha Becerra ANESTHESIA TYPE: General LMA/ETT ESTIMATED BLOOD LOSS: 5 PATHOLOGY: other (bx of gastric polyps) COMPLICATIONS: None DISPOSITION: PACU INDICATIONS: Betzaida is a pleasant 47 year old female who is developmentally delayed and non-verbal who is here today because she is unable to swallow. Her guardian/Mom thinks there might be a piece of chicken bone stuck in her esophagus.? CXR and Neck Xray were negative Discussed the EGD procedure with the patients gurdian, including the complications. Risks, benefits and complications have been reviewed. Complications include but are not limited to bleeding, pain, perforation, sore throat, aspiration, and adverse reaction to the medications.? Questions were entertained and answered to their satisfaction and they wished to proceed. No guarantees were given or implied FINDINGS: Chicken, peas stuck in the distal esophagus. There was inflammation of the GE junction. There were multiple, benign appearing polyps in the stomach. Decreased motility of the esophgus observed as well as a tortuous esophagus distally. PROCEDURE DESCRIPTION: After informed consent was obtained the patient was take to the operating room and placed in a supine position. Monitors were applied and a time out was done. The patients name, date of , procedure type, allergies to medications and metal in their body was reviewed. The ptient was placed under general anesthesia and intubated. Once the ETT was secured, the gastroscope was advanced through the oropharynx which was grossly normal into the esophagus. There were some pieces of peas near the vocal cords and at the proximal esophagus. This was suctioned. The proximal and mid-esophagus were normal. In the distal esophagus there was chicken and peas noted. Using the grasper pieces of chicken and peas were removed piecemeal. Once there was only a small amount left the rest was gently pushed into the stomach. The scope was then advanced into the stomach. There were inumerable polyps in the stomach. Some sessile and some pedunculated. A few were randomly biopsied. The scope was pulled back into the esophagus. There was no narrowing at the GE junction. There was some redundancy in the distal esophagus. Minimal peristalsis was noted in the esophagus as the scope was removed. The scope was removed and the patient was woken up and taken back to [facility] in stable condition.
--- NOTE | 2023-02-14 12:13 | W.PM.DSUDISC ---
Date of service: 02/14/23 Time of Service: 12:13 Discharge Plan Disposition Patient Disposition: Home Condition: Stable Discharge Details Attending Provider: Sneha Becerra Primary Care Provider: Cecy Fulton Home Meds and New Rx's Prescriptions: New sucralfate [Carafate] 1 gram tablet 1 g PO QACHS Qty: 56 0RF Continued lamotrigine 200 mg tablet See Rx Instructions .ROUTE .COMPLEX Qty: 270 4RF Dose Instruction: TAKE 1 TABLET BY MOUTH THREE TIMES DAILY Rx Instructions: TAKE 1 TABLET BY MOUTH THREE TIMES DAILY pantoprazole 40 mg tablet,delayed release (DR/EC) 40 mg PO DAILY Qty: 30 12RF topiramate [Topamax] 100 mg tablet 100 mg PO BID Qty: 180 4RF cholecalciferol (vitamin D3) 25 mcg (1,000 unit) capsule 1,000 unit PO DAILY Qty: 90 12RF Rx Instructions: dispense chewable (gummy) if possible medroxyprogesterone [Depo-Provera] 150 mg/mL suspension 150 mg IM [id number] Qty: 1 4RF Women's Multivitamin Gummies 200 mcg tablet,chewable See Rx Instructions PO DAILY Qty: 90 5RF Dose Instruction: 1 each; PO DAILY; 1 each PO DAILY; Rx Instructions: 1 each PO DAILY nystatin 100,000 unit/gram powder 1 applic topical BID Qty: 60 4RF triamcinolone acetonide 15 GM cream 1 eric Topical PRN PRNQty: 3 adult diaper liners 1 dose Topical TID Qty: 90 12RF Rx Instructions: adult diaper liners medically necessary polyethylene glycol 3350 17 GM powder in packet 17 gm PO PRN PRN Discharge Instructions Additional Instructions: Findings: impacted food in the distal esophagus Chronic inflammation in the stomach with multiple benign polyps Follow up: as needed Diet: pureed for next 24 hours Please call if you develop: fevers >101.5 Nausea or Vomiting Abdominal pain that is not transient Rectal bleeding that is more then a tbsp A hard abdomen and inability to pass gas DAY SURGERY UNIT POST ENDOSCOPY INSTRUCTIONS Instructions for everyone who is given Anesthesia: For your safety, please do the following for the next 24 Hours: a. Do not drive or operate dangerous equipment b. Do not drink alcohol beverages or use any recreational drugs for the first 24 hours or while taking pain medications. The medications in your body may have a reaction that can be dangerous. c. Do not make any important decisions or sign any important papers 1. Generally there are no restrictions on your activity after a day or so has gone by, but you may feel a bit fatigued for a few days. 2. After you arrive home you may have a light meal and return to a normal diet as you can tolerate it without feeling sick to your stomach. 3. After surgery, you may feel pain or discomfort. This should be only transient, but if it persists please contact your doctor. 4. If there are any questions regarding the findings of your procedure, please feel free to contact your doctor. 6. If you are unable to contact your doctor with a problem, contact the hospital at [phone]. 7. Continue all your regular medications unless directed otherwise. I understand the above instructions and have no questions. Signature of Patient or Responsible Adult Escort Date/Time Name of Responsible Adult Escort Signature of Nurse Date/Time Activity:: Activity as Tolerated Diet:: pureed diet Discharge Orders Discharge Orders: Discharge Order (Routine); Ordered 02/14/23 Ordered By: Sneha Becerra DS: Diagnosis Discharge Diagnosis (1) Esophageal foreign body: Status: Acute Asessment and Plan: Patient is seen and examined after their endoscopy. Patient has minimal sore throat. They have been able to tolerate liquids. They do not have any Nausea or Vomiting. They are not having any chest pain or shortness of breath. They have been able to pass gas and are not having any abdominal pain or distention. they have not vomited any blood. The vital signs have been stable-see nursing notes. We discussed findings on their endoscopy We reviewed the importance of lifestyle modifications- see diet recommendations We reviewed any new medications that the patient may be prescribed- see medicine reconciliation. Patient will either be sent a letter with the biopsy results or follow up in the office- see discharge instructions Patient was given explicit instructions for emergency follow up post endoscopy- see discharge instructions Patient verbalized understanding and was discharged in stable and satisfactory condition. See nursing notes. (2) GERD (gastroesophageal reflux disease): Status: Chronic
[2023-02-14] MEDS: Lactated Ringers 1,000 ML 30 ML IV (13:03)
--- NOTE | 2023-02-14 13:30 | STOM_PTH ---
PATIENT: Betzaida Barajas LOC: [facility] U#:[id number] AGE/SX: 47/F ROOM: RE02/14/[address]: Sneha Becerra MD : 1975 BED: DIS: 02/14/2023 SPEC #: [id number] RECD: 02/16/23 13:07 STATUS: BASIA REKarthik #: [id number] GEREMIAS: 02/14/23 13:[address]: Sneha Becerra DEPT: Surgical Specimen RECD BY: Paola Bae ENTERED: 02/16/23 13:09 SP TYPE: STOMACH OTHR DR: Cecy Fulton MD, DC Anesthesia, Consult Tissues: 1 - STOMACH BIOPSY Procedures: GROSS AND MICRO LEVEL 4 Comments: [id number]
--- NOTE | 2023-02-14 14:04 | W.ANESPOSTOP ---
Postoperative Evaluation Date, Time and Location Date Performed: 02/14/23 Time Performed: 14:04 Patient Location: PACU Vital Signs Most Recent Imported Vital Signs: Most Recent Vital Signs Temp Pulse Resp BP Pulse Ox 36.5 C 105 H 33 H 129/79 95 02/14/23 14:00 02/14/23 14:00 02/14/23 14:00 02/14/23 14:00 02/14/23 14:00 Pain Score Most Recent Pain Score: Most Recent Pain Score Pain Level 0 02/14/23 14:00 Assessment Mental Status: Awake (Alert & Oriented to Patient Baseline) Airway and Respiratory Function: Patent airway with normal (patient baseline) respiratory exam Cardiovascular Function: Hemodynamically Stable Hydration Status: Adequately Hydrated Nausea & Vomiting: No Nausea or Vomiting Pain: Pt. Denies Any Pain Peripheral Nerve Block: Patient did not receive a nerve block
== END 2023-02-14 15:11 | disposition home or self-care (01) ==
LOC: ER 12:14 → SUR 12:59
PROVIDERS: Emergency Provider Emergency Medicine; PCP Family Medicine; Visit Provider Surgery
PROC: 0DC68ZZ Extirpation of Matter from Stomach, Via Natural or Artificial Opening Endoscopic (ICD-10-PCS; CPT 43247; principal; 2023-02-14 12:50)
DX: T18.128A Food in esophagus causing other injury, initial encounter (principal); K31.7 Polyp of stomach and duodenum
CPT/HCPCS: 43247; 43239; 88305; 70360; 71046; J0131; J2001; J2250; J2704

== ENCOUNTER 2023-10-13 04:45 | Outpatient (CLI) | payer MEDICARE, MEDICAID, SELFPAY ==
[2023-10-13 12:32] LABS: Abs Immature Grans 0.02 10^3/uL (0.0-0.06); Absolute Basophil Count 0.07 10^3/uL (0.0-0.2); Absolute Eosinophil Count 0.59 10^3/uL (0.0-0.7); Absolute Lymphocyte Count 3.43 10^3/uL (1.2-3.4); Absolute Monocyte Count 0.69 10^3/uL (0.1-0.8); Absolute Neutrophil Count 4.47 10^3/uL (1.2-6.7); Basophils % 0.8; Eosinophils % 6.4; HCT 47.9 % (36.0-46.0); HGB 15.8 g/dL (11.2-15.7); Immature Grans % 0.2; MCH 31.3 pg (27.0-33.0); MCV 95 fL (80-95); MPV 10.1 fL (8.0-11.0); Monocytes % 7.4; Neutrophils % 48.2; Platelet Count 285 10^3/uL (130-400); RBC 5.04 10^6/uL (3.93-5.22); RDW 12.4 % (11.7-14.6); RDW-SD 43.7 fL; WBC 9.27 10^3/uL (4.4-10.8)
[2023-10-13 12:56] LABS: ALT 31 U/L (14-59); AST 11 U/L (15-37); Alkaline Phosphatase 101 U/L (46-116); BUN 16 mg/dL (7-18); Bilirubin, Total 0.4 mg/dL (0.2-1.0); Calcium 9.4 mg/dL (8.5-10.1); Chloride 108 mmol/L (98-107); Estimated GFR 69.93 (mL/min/1.73m2); Glucose 96 mg/dL (74-106); Potassium 3.5 mmol/L (3.5-5.1); Sodium 144 mmol/L (136-145)
[2023-10-15 12:14] LABS: Lamotrigine 9.7 mcg/mL (3.0-15.0)
== END 2023-10-13 04:46 | disposition home or self-care (01) ==
LOC: LOS 04:45
PROVIDERS: PCP Family Medicine; Visit Provider Family Medicine
DX: G80.9 Cerebral palsy, unspecified (principal); F89 Unspecified disorder of psychological development; D64.9 Anemia, unspecified; I10 Essential (primary) hypertension
CPT/HCPCS: 36415; 80053; 80175; 80201; 85025

== ENCOUNTER 2024-10-13 02:24 | Outpatient (CLI) | payer MEDICARE, MEDICAID, SELFPAY ==
[2024-10-13 12:29] LABS: HCT 47.9 % (36.0-46.0); HGB 15.2 g/dL (11.2-15.7); MCH 30.6 pg (27.0-33.0); MCHC 31.7 % (32.0-36.0); MCV 97 fL (80-95); MPV 9.7 fL (8.0-11.0); Platelet Count 292 10^3/uL (130-400); RBC 4.96 10^6/uL (3.93-5.22); RDW 12.7 % (11.7-14.6); RDW-SD 45.3 fL; WBC 10.05 10^3/uL (4.4-10.8)
[2024-10-13 13:18] LABS: ALT 31 U/L (14-59); AST 10 U/L (15-37); Albumin 3.7 g/dL (3.4-5.0); Alkaline Phosphatase 115 U/L (46-116); Anion Gap 12.6 mmol/L (3-11); BUN 15 mg/dL (7-18); Bilirubin, Total 0.4 mg/dL (0.2-1.0); CO2 22.4 mmol/L (21.0-32.0); CREATININE 0.9 mg/dL (0.55-1.02); Calcium 9.2 mg/dL (8.5-10.1); Chloride 109 mmol/L (98-107); Estimated GFR 78.86 (mL/min/1.73m2); Glucose 81 mg/dL (74-106); Potassium 3.5 mmol/L (3.5-5.1); Sodium 144 mmol/L (136-145); TSH (W/Ref FT4) 2.56 uIU/mL (0.36-3.74); Total Protein 7.9 g/dL (6.4-8.2); Vitamin B12 610 pg/mL (193-986); Vitamin D 25 Total 98 ng/mL (30-100)
[2024-10-15 11:57] LABS: Lamotrigine 7.8 mcg/mL (3.0-15.0)
[2024-10-18 01:44] LABS: Topiramate 6.8 mcg/mL
== END 2024-10-13 02:25 | disposition home or self-care (01) ==
LOC: LOS 02:24
PROVIDERS: PCP Family Medicine; Visit Provider Family Medicine
DX: E03.9 Hypothyroidism, unspecified (principal); G40.909 Epilepsy, unspecified, not intractable, without status epilepticus; G80.9 Cerebral palsy, unspecified; I10 Essential (primary) hypertension; E55.9 Vitamin D deficiency, unspecified
CPT/HCPCS: 36415; 80053; 80175; 82306; 85027; 80201; 82607; 84443

== ENCOUNTER 2024-12-07 12:43 | Emergency (ER) | payer MEDICARE, MEDICAID, SELFPAY ==
[2024-12-07] VITALS (44 sets, daily range): BP systolic 92–140; BP diastolic 37–100; PULSE 83–220; RESP 14–31; TEMP 37.1; O2SAT 95–97
--- NOTE | 2024-12-07 12:45 | RT.EKG_ITS ---
APPROVED REPORT Exam: Resting ECG Reason for Exam: Unwitnessed Syncope Patient Location: E HR:95 bpm ECG Measurements Heart Rate 95 AXIS MI 133 P 33 QRSd 85 QRS 27 QT 335 T 32 QTc 421 Conclusion Sinus rhythm...normal P axis, V-rate 60- 99 No Occlusion DC
--- NOTE | 2024-12-07 13:00 | DI.RAD_ITS ---
Exam(s) XR SHOULDER RT COMPLETE 2+V EXAM: XR SHOULDER RT COMPLETE 2+V CLINICAL HISTORY: fall on right shoulder, seizure, ecchymosis. TECHNIQUE: 2D digital imaging was performed. COMPARISON: No exams were available for comparison FINDINGS: 3 views There is a sub-para glenoid fracture of the scapula. There is no dislocation of the glenohumeral rob nt. Humeral head and neck appear intact as does the clavicle and there is no diastasis of the AC rob nt. No obvious fracture of the coracoid process of the scapula. IMPRESSION: Scapular fracture which approaches the region of the glenoid fossa. If clinically indicated follow-u p CT scan of the shoulder region can be performed to determine extent of any involvement of the osseo us glenoid. No obvious proximal humerus fracture nor adjacent rib fractures. No pneumothorax. DATA REPOSITORY: RADIATION DOSE DELIVERED:
--- NOTE | 2024-12-07 13:00 | DI.CT_ITS ---
Exam(s) CT HEAD CERVICAL SPINE WO EXAM: CT HEAD CERVICAL SPINE WO CLINICAL HISTORY: fall, HI,cervical pain. TECHNIQUE: Imaging Protocol: Axial computed tomography images with coronal and sagittal reformatted images were created and reviewed COMPARISON: CR,XR XR SOFT TISSUE NECK from 02/14/2023 FINDINGS: BRAIN: There is motion artifact. There are no obvious skull fractures nor fluid in the visualized paranasal sinuses and mastoid air ce lls. Hyperostosis frontalis interna is incidentally noted. In There is no evidence of obvious intracranial hemorrhage, realizing the amount of motion artifact here . No mass effect, or shift of midline structures. There are no extra-axial fluid collections. The ventricles are not enlarged or shifted and there is no obvious blood within the ventricular system no r within the basal cisterns. CERVICAL SPINE: Interpretation limited by motion artifact. There is compression fracture of superior endplate of C7, age indeterminate. This may have been pres ent on prior soft tissue technique images of the neck performed February 2023. The posterior cortex at this level appears intact. Mild disc space narrowing at C5-6 noted. There is no significant facet arthropathy. There is no significant facet joint malalignment. No significant osseous lesions evident. IMPRESSION: Interpretation both studies is somewhat limited by motion artifact on both studies No obvious acute intracranial findings on this noninfused CT scan of the brain. Compression fracture of C7 vertebral body which is possibly not acute. It appears to have been proba erik present on prior soft tissue neck technique images of 02/14/2023. Correlation with level of tend erness is recommended. Report called by myself to ER provider 12/07/2024 at 2:20 p.m. RADIATION DOSE DELIVERED: 1,273.22mGy.cm Total DLP DATA REPOSITORY: All CT scans at this facility are submitted to the National Radiology Data Registry (NRDR) Dose Index Registry (DIR) with the [employer] (ACR). RADIATION OPTIMIZATION: All CT scans at this facility use at least one of these dose optimization te chniques: automated exposure control; mA and/or kV adjustment per patient size (includes targeted exa ms where dose is matched to clinical indication); or iterative reconstruction.
--- NOTE | 2024-12-07 13:00 | DI.RAD_ITS ---
Exam(s) XR CHEST 2V PA LATERAL EXAM: XR CHEST 2V PA LATERAL CLINICAL HISTORY: trauma, right. TECHNIQUE: 2D digital imaging was performed. COMPARISON: No exams were available for comparison FINDINGS: 2 views: Heart size is normal. The mediastinum is not widened. Lungs are clear. No infiltrates nor pleural effusions. IMPRESSION: No acute pulmonary findings. DATA REPOSITORY: RADIATION DOSE DELIVERED:
[2024-12-07] MEDS: MORPHine IR 15 MG TAB 7.5 MG PO (14:49)
--- NOTE | 2024-12-07 14:56 | W.ED.GENAD ---
Discharge Plan Disposition Patient Disposition: Home Condition: Stable Discharge Details Clinical Impression: Fracture of scapula, Cervical compression fracture Primary Care Provider: Cecy Fulton ED Provider: Yara Whitlock Home Meds and New Rx's Prescriptions: New oxycodone 5 mg tablet 5 mg PO Q8H PRNQty: 10 0RF Rx Instructions: take 2.5 -5mg every 8 hours as needed for pain Continued topiramate [Topamax] 100 mg tablet 100 mg PO BID Qty: 180 4RF multivit with min-folic acid [Women's Multivitamin Gummies] 200 mcg tablet,chewable See Rx Instructions PO DAILY Qty: 90 5RF Dose Instruction: 1 each; PO DAILY; 1 each PO DAILY; Rx Instructions: 1 each PO DAILY triamcinolone acetonide 15 GM cream 1 eric Topical PRN PRNQty: 3 adult diaper liners 1 dose Topical TID Qty: 90 12RF Rx Instructions: adult diaper liners medically necessary cholecalciferol (vitamin D3) 25 mcg (1,000 unit) capsule 1,000 unit PO DAILY Qty: 90 12RF Rx Instructions: dispense chewable (gummy) if possible medroxyprogesterone 150 mg/mL syringe 150 mg IM [id number] Qty: 1 3RF nystatin 100,000 unit/gram powder 1 applic topical BID Qty: 60 4RF lamotrigine 200 mg tablet See Rx Instructions .ROUTE .COMPLEX Qty: 270 4RF Dose Instruction: TAKE 1 TABLET BY MOUTH THREE TIMES DAILY Rx Instructions: TAKE 1 TABLET BY MOUTH THREE TIMES DAILY polyethylene glycol 3350 17 GM powder in packet 17 gm PO PRN PRN Discharge Instructions Instructions: Shoulder Blade Fracture (DC) Additional Instructions: Take Tylenol every 6 hours for pain you may take oxycodone as needed for pain uncontrolled with Tylenol and ibuprofen Make sure you watch bowel regimen as the opioids can cause constipation and tiredness Please follow-up with orthopedics Wear sling as needed, do not wear sling at night Please return with new or worsening complaints Neurosurgery is requesting the application of a collar if she can tolerate it. Please follow-up with primary care provider also they were concerned about maybe doing an endocrinology referral. Follow up with primary care provider in 3-5 days. Return to ED sooner if any worsening or concerns. Thank you for allowing us to care for you today. Referrals: [facility] [Outside] - 2 weeks (They will call you with appointment, otherwise call them please) Cecy Fulton MD, DC [Primary Care Provider] - Mina Castillo MD [ [facility] STAFF PHYSICIAN] - Discharge Data Discharge Date/Time-TO BE ENTERED AT DEPARTURE: 12/07/24 18:31 HPI <RONNY Lee - Last Filed: 12/09/24 16:50> General Date/Time Provider Initiated Documentation: 12/07/24 12:48. HPI Narrative: 49-year-old female with cerebral palsy and seizures, presenting after a tonic-clonic seizure. Fell forward onto her right side, found alert and at neurological baseline. Experiencing right scapular pain post-event. Nonverbal, history provided by mother. Majority of history provided by mother secondary to patient's baseline mentation Related Data Home Medications ?Medication ?Instructions ?Recorded ?Confirmed triamcinolone acetonide 0.1 % 1 eric topical PRN PRN ##3 12/10/12 12/07/24 topical cream polyethylene glycol 3350 17 gram 17 gm PO PRN PRN 10/15/14 12/07/24 oral powder packet cholecalciferol (vitamin D3) 25 1,000 unit PO DAILY #90 tab-caps 11/18/23 12/07/24 mcg (1,000 unit) capsule medroxyprogesterone 150 mg/mL 150 mg IM [id number] #1 mL 05/09/24 12/07/24 intramuscular syringe nystatin 100,000 unit/gram topical 1 applic topical BID #60 grams 05/09/24 12/07/24 powder lamotrigine 200 mg tablet See Rx Instructions .Route 09/06/24 12/07/24 .COMPLEX #270 tabs multivitamin with minerals-folic See Rx Instructions PO DAILY #90 10/03/24 12/07/24 acid 200 mcg chewable tablet tabs (Women's Multivitamin Gummies) topiramate 100 mg tablet (Topamax) 100 mg PO BID #180 tab-caps 10/03/24 12/07/24 oxycodone 5 mg tablet 5 mg PO Q8H PRN #10 tabs 12/07/24 Previous Rx's ?Medication ?Instructions ?Recorded cholecalciferol (vitamin D3) 25 1,000 unit PO DAILY #90 tab-caps 11/18/23 mcg (1,000 unit) capsule medroxyprogesterone 150 mg/mL 150 mg IM [id number] #1 mL 05/09/24 intramuscular syringe nystatin 100,000 unit/gram topical 1 applic topical BID #60 grams 05/09/24 powder lamotrigine 200 mg tablet See Rx Instructions .Route 09/06/24 .COMPLEX #270 tabs multivitamin with minerals-folic See Rx Instructions PO DAILY #90 10/03/24 acid 200 mcg chewable tablet tabs (Women's Multivitamin Gummies) topiramate 100 mg tablet (Topamax) 100 mg PO BID #180 tab-caps 10/03/24 oxycodone 5 mg tablet 5 mg PO Q8H PRN #10 tabs 12/07/24 Allergies Allergy/AdvReac Type Severity Reaction Status Date / Time amoxicillin Allergy Intermediate rash Verified 12/07/24 12:54 prochlorperazine Allergy Unknown Hyperactivi Verified 12/07/24 12:54 ty COVID-19 vacc, bv (Orig, AdvReac Seizures Verified 12/07/24 12:54 Omicron BA.4/5) (Moderna) (From Moderna COVID Bival(6m up)(PF)) General Stated Complaint: Fall/Non TraumaCriteria ELIA: 3 Exam <RONNY Lee - Last Filed: 12/09/24 16:50> Narrative Exam Narrative: Transfer physical exam Course <RONNY Lee - Last Filed: 12/09/24 16:50> Vital Signs Vital signs: Vital Signs Pulse 97 H 12/07/24 12:47 Respiratory Rate 22 12/07/24 12:47 Blood Pressure 132/99 H 12/07/24 12:47 Pulse Oximetry 96 12/07/24 12:47 Temperature 37.1 C 12/07/24 12:59 Temperature Source Tympanic 12/07/24 12:59 Pulse 93 H 12/07/24 14:20 Pulse 94 H 12/07/24 14:20 Respiratory Rate 25 H 12/07/24 14:20 Blood Pressure 131/73 12/07/24 14:20 Blood Pressure Mean 247 12/07/24 14:16 Blood Pressure Position Supine 12/07/24 12:47 Pulse Oximetry 97 12/07/24 14:20 Oxygen Delivery Method Room Air 12/07/24 12:47 Oxygen Flow Rate 0 12/07/24 12:47 Comment pt with visible grimace on face and holding right arm to chest 12/07/24 12:47 Medical Decision Making <RONNY Lee - Last Filed: 12/09/24 16:50> CT cervical spine: No acute fracture. Possible age-indeterminant superior endplate compression fracture in C7. Initial Assessment: 49-year-old female with history of cerebral palsy and seizures, presented with tonic-clonic seizure and fall onto right side. Found alert and at neurological baseline. ED Course: - Physical exam: Alert, pupils equal round reactive to light and accommodation, no hemotympanum, abrasion to right shoulder, ecchymosis, tenderness to right scapula, cervical spine tenderness, able to grasp bilaterally, moves lower extremities, no visible trauma to lower legs, abdomen, or flank, distal pulses intact. - CT cervical spine: No obvious acute fracture, possible age-indeterminant superior endplate compression fracture in C7, difficult assessment due to baseline neurological state, no focal deficits. - Radiology interpretation and discussion with Dr. Castillo, orthopedics: Follow up with sling as tolerated. - Seizure discussion: Typical seizure for patient, no further evaluation or blood work needed. - Called neurosurgery to review CT cervical spine. Signed out to Yara pending review of C-spine films Final Assessment: Patient experienced a typical tonic-clonic seizure with fall, resulting in right scapular pain and possible nondisplaced scapular fracture. No further evaluation for seizure needed, follow up with orthopedics for scapular injury. Clinical Impression: - Tonic-clonic seizure - Right scapular pain Disposition: - Follow-Up: Orthopedics for scapular injury, use sling as tolerated. MDM Components Evaluation: - Number of Differential Diagnoses or Management Options: Tonic-clonic seizure, right scapular pain - Amount and Complexity of Data Reviewed: Physical exam, CT cervical spine, radiology interpretation, discussion with orthopedics, neurosurgery review - Risk of Complication and Morbidity or Mortality: Low risk for complications from seizure, potential morbidity from scapular fracture Quality:[facility] Health Related Social Needs: No Data to Display <Yara Whitlock NP - Last Filed: 12/07/24 20:03> Medical Records Medical records reviewed: Yes I reviewed the patient's medical records. Medical records narrative: 1555: SJ: Care assumed from provider (RONNY Lee) Please see their initial HPI, PE, and documentation. Discussed patient details and case and pending consultation with trauma team at tertiary facility for C7 compression fracture. Patient also has a scapular fracture please see her documentation. 1640: Spoke with Dr. Crowley with [facility] [place] regarding the images of the C-spine. He recommends an Lovelock collar and upright C-spine x-rays and they will see her in the neurosurgery clinic also recommends a referral to endocrinology. C-spine x-rays ordered and will order the Lovelock c-collar. Informed family of plan of care they are questioning whether the patient will be able to tolerate the collar. I stated that we will try if she can tolerate it. C-spine x-ray performed there is C7 loss of height however radiologist thinks that this is probably unchanged from February 2023. I did discuss that recommendations for the neurosurgery to follow-up with them. Patient to be discharged in the care of her family. She has remained hemodynamically stable and at baseline throughout the remainder of the stay. This text was generated using Onyu dictation system, please disregard any oddities of phrase or misspellings. Imaging Data Radiologic Study: Imaging: X-Ray Radiologist's impression: XR CERVICAL SP TEE TRAUMA 2-3V EXAM: XR CERVICAL SP TEE TRAUMA 2-3V CLINICAL HISTORY: C-spine fracture. TECHNIQUE: 2D digital imaging was performed. COMPARISON: No exams were available for comparison FINDINGS: Two views-AP and lateral C7 vertebral body is obscured by the shoulders on the lateral view and there is no swimmer's view. However, on the frontal view there is a compression fracture of C7 noted. The appearance of the frontal view is similar to the appearance of either soft tissue technique images of the neck performed February 2023. There is mild disc space narrowing at tear early at the 5-6 disc space level as well as C6-7. IMPRESSION: C7 loss of height best seen on the frontal view which appear peers probably unchanged from soft tissue technique images of February 2023. PFSH <RONNY Lee - Last Filed: 12/09/24 16:50> All Active Problems (Updated 12/07/24 @ 15:47 by RONNY Lee) Cervical compression fracture (Acute) Fracture of scapula (Acute) Esophageal foreign body (Acute) GERD (gastroesophageal reflux disease) (Chronic) Vitamin D deficiency, unspecified (Chronic 05/22/09) Total urinary incontinence (Chronic) Seizure (Chronic) CP W/ MOVT DISORDER; SEIZURES. Constipation (Chronic 07/07/14) Developmental disorder (Chronic) Cerebral palsy (Chronic) Epilepsy (Chronic) Medical History At risk for osteopenia DEPO PROVERA X5 YRS Impacted esophageal foreign body Resp obstr-inhal obj NEC ENDOSCOPIES FOR REMOVAL OF FOREIGN BODIES Surgical History EGD - MAC (07/15/12) Removal of foreign body X 3 TOE SURGERY (11/04/12) RIGHT TOE FX Tooth extraction Family History Mother Hyperlipidemia Father , age 64 Essential hypertension Depression Hyperlipidemia Vascular disease Lung cancer Stroke Sister Essential hypertension Maternal Grandfather Hyperlipidemia Stroke Chronic obstructive lung disease Paternal Grandfather Essential hypertension Hyperlipidemia Stroke Chronic obstructive lung disease Maternal Grandmother Diabetes Essential hypertension Hyperlipidemia Paternal Grandmother Essential hypertension Hyperlipidemia Stroke MATERNAL GREAT GRANDMOTHER No problems noted. Social History (Updated 09/18/23 @ 19:07 by Stacy Hale) Smoking/Tobacco Use Status: Never Second Hand Exposure: Yes Smoking risk assessment performed?: Yes Alcohol Intake: never Drug use: Never Substance use type: does not use Adopted: No Caregiver/Support person: Yes Household members: family Housing: house Communication Needs: Cannot Read and Language Barriers Do you need help understanding health information?: Always Pets and animals: Yes Pets and animals: cat(s) Sexually active: No Current gender identity: female What is your relationship status?: never How often do you talk on the phone with friends or family?: never How often do you get together with friends or relatives?: three or more times per week How often do you attend lutheran or buddhism services?: decline to answer Do you belong to any clubs or organized social groups?: no Panel score (0-1 are the most socially isolated patients): 1 What type of physical activity do you participate in: none Duration: < 15 minutes/day Ailyn/Quaker: Uatsdin Special ailyn needs: No Seatbelt use: always Drive intox or ride w/intox cdl dedicated truck driver: No Do you feel safe at home: Yes Do you feel safe in your relationship?: Yes Victim of physical abuse: No Victim of emotional abuse: No Victim of sexual abuse: No Would you like helpful sources: No
[2024-12-07] MEDS: lamoTRIgine 100 MG TAB 200 MG PO (16:02)
--- NOTE | 2024-12-07 16:45 | DI.RAD_ITS ---
Exam(s) XR CERVICAL SP TEE TRAUMA 2-3V EXAM: XR CERVICAL SP TEE TRAUMA 2-3V CLINICAL HISTORY: C-spine fracture. TECHNIQUE: 2D digital imaging was performed. COMPARISON: No exams were available for comparison FINDINGS: Two views-AP and lateral C7 vertebral body is obscured by the shoulders on the lateral view and there is no swimmer's view. H owever, on the frontal view there is a compression fracture of C7 noted. The appearance of the front al view is similar to the appearance of either soft tissue technique images of the neck performed Feb us2022. There is mild disc space narrowing at tear early at the 5-6 disc space level as well as C6-7. IMPRESSION: C7 loss of height best seen on the frontal view which appear peers probably unchanged from soft tissu e technique images of February 2023. DATA REPOSITORY: RADIATION DOSE DELIVERED:
== END 2024-12-07 18:31 | disposition home or self-care (01) ==
PROVIDERS: Emergency Provider Registered Nurse Emergency; PCP Family Medicine
DX: S42.101A Fracture of unspecified part of scapula, right shoulder, initial encounter for closed fracture (principal); S12.690A Other displaced fracture of seventh cervical vertebra, initial encounter for closed fracture; W19.XXXA Unspecified fall, initial encounter; G80.9 Cerebral palsy, unspecified; R56.9 Unspecified convulsions
CPT/HCPCS: 99285; 99284; 93005; 70450; 71046; 72040; 72125; 73030; 93010

== ENCOUNTER 2024-12-14 02:49 | Outpatient (CLI) | payer MEDICARE, MEDICAID, SELFPAY ==
--- NOTE | 2024-12-14 12:14 | DI.DEXA_ITS ---
Exam(s) XR DEXA BONE DENSITY W/WO TOD EXAM: XR DEXA BONE DENSITY W/WO TOD CLINICAL HISTORY: multiple fractures,SCREENING FOR OSTEOPOROSIS IN POSTMENOPAUSAL STATUS,Z78. TECHNIQUE: COMPARISON: No exams were available for comparison FINDINGS: Lateral Spine Image: A lateral spine image was not obtained during this examination. Left hip: Total T-Score: -2.8 Total Z-Score: -2.4 T- and Z-scores: Findings are consistent with osteoporosis. Lumbar Spine: Total T-Score: -1.9 Total Z-Score: -1.3 T- and Z-scores: There is osteoporosis seen in the L4 vertebral body with a T-score of -2.8. IMPRESSION: Osteoporosis in the left hip and L4 vertebral body.
== END 2024-12-14 03:09 ==
LOC: DI 02:49
PROVIDERS: PCP Family Medicine; Visit Provider Family Medicine
DX: Z13.820 Encounter for screening for osteoporosis (principal); Z78.0 Asymptomatic menopausal state; M81.0 Age-related osteoporosis without current pathological fracture; T07.XXXA Unspecified multiple injuries, initial encounter
CPT/HCPCS: 77080

== ENCOUNTER 2024-12-28 13:03 | Outpatient (CLI) | payer MEDICARE, MEDICAID, SELFPAY ==
--- NOTE | 2024-12-28 11:15 | DI.RAD_ITS ---
Exam(s) XR SHOULDER RT COMPLETE 2+V EXAM: XR SHOULDER RT COMPLETE 2+V CLINICAL HISTORY: F/U FRACTURE. TECHNIQUE: 2D digital imaging was performed. Two views. COMPARISON: CR XR SHOULDER RT COMPLETE 2+V from 12/07/2024 FINDINGS: There has been some increased healing at the scapular fracture with increased callus formation. The alignment is unchanged. No new abnormalities are identified. IMPRESSION: Stable alignment of scapular fracture. DATA REPOSITORY: RADIATION DOSE DELIVERED:
== END 2024-12-28 13:04 | disposition home or self-care (01) ==
LOC: DIORS 13:03
PROVIDERS: PCP Family Medicine; Referring Provider Family Medicine; Visit Provider Student in an Organized Health Care Education/Training Program
DX: S42.101A Fracture of unspecified part of scapula, right shoulder, initial encounter for closed fracture (principal); X58.XXXA Exposure to other specified factors, initial encounter
CPT/HCPCS: 99213; 73030